=== PATIENT | female | born 1945 | race Caucasian/White ===

== ENCOUNTER 2022-08-25 07:53 | Emergency (ER) | payer MEDICARE, OTHER, SELFPAY ==
[2022-08-25 07:56] VITALS: BP 140/104; PULSE 131; RESP 17; TEMP 35.6; O2SAT 97; BMI 33.1
--- NOTE | 2022-08-25 07:57 | NURSING ---
NO OLD EKGS
[2022-08-25 08:17] VITALS: BP 109/97; PULSE 146; RESP 17; O2SAT 97
--- NOTE | 2022-08-25 08:18 | EKG12_ITS ---
Test Reason : DYSRHYTHMIA Blood Pressure : / mmHG Vent. Rate : 125 BPM Atrial Rate : 136 BPM P-R Int : 000 ms QRS Dur : 146 ms QT Int : 340 ms P-R-T Axes : 000 -51 102 degrees QTc Int : 490 ms Atrial fibrillation Left axis deviation Left bundle branch block Abnormal ECG Confirmed by PABLO SUE, ODALYS ([id number]), index editor VEDA CLARK ([id number]) on 08/28/2022 1:06:38 PM Referred By: NASIMA/JAEL Confirmed By:ODALYS SHAH MD
--- NOTE | 2022-08-25 08:19 | EX.ED.DYSGE1 ---
HPI History of Present Illness Chief Complaint: Palpitations Narrative Narrative: 77-year-old female with past medical history of atrial fibrillation, pacemaker, presents with a feeling that she is in atrial fibrillation again. She states she takes Xarelto as a blood thinner and has not missed a dose in over 2 weeks. She thought that she was in atrial fibrillation this morning at around 330 because she had to urinate more. She was last in atrial fibrillation as her underlying rhythm in May. She states her mine geologist, Dr. Reese at [facility] gave her 1 dose of Tikosyn, but she was very reactive towards that. Additionally, she had an ablation prior to her pacemaker placement. She denies any chest pain or shortness of breath. No other symptoms. She states that before they were going to cardiovert her, her potassium was low and it was replaced which helped her spontaneously cardioverted on her own. She does take metoprolol for rate control otherwise. No fevers or chills. No other symptoms. PFSH PFS Home Medications metoprolol tartrate 50 mg tablet 50 mg PO BID #30 tabs 08/25/22 [Rx Last Taken Unknown] sulfamethoxazole 800 mg-trimethoprim 160 mg tablet (Bactrim DS) 1 tab PO BID #6 tabs 08/25/22 [Rx Last Taken Unknown] Allergy/AdvReac Type Severity Reaction Status Date / Time azithromycin [From Zithromax] Allergy Angioedema Verified 08/25/22 07:55 Cephalosporins Allergy Swelling Verified 08/25/22 07:55 lisinopril AdvReac cough Verified 08/25/22 07:55 Social History Smoking Status: Never smoker ROS ROS ED ROS Narrative Constitutional: No fever, no chills. HEENT: No sore throat. No neck pain. No loss of vision. No rhinorrhea. Cardiovascular: No chest pain. Mild palpitations. I am in A. fib again. No pedal edema. Respiratory: No cough, no shortness of breath. Abdominal: No abdominal pain. No nausea. No vomiting. Genitourinary: No dysuria. No hematuria. Musculoskeletal: No myalgias. No arthralgias. Positive back pain from remote injury. Neurologic: No headaches. No dizziness. No lightheadedness. Skin: No rash. No change in color. Psychiatric: No depression. No anxiety. EXAM Physical Exam Narrative Exam Narrative: Afebrile. Vital signs noted. HEENT: Normocephalic. Atraumatic. PERRL, EOMI. Neck soft and supple. No point tenderness or step off. Cardiovascular: Irregularly irregular tachycardia.. No murmurs, rubs, or gallops appreciated. Respiratory: No tachypnea. Lungs clear to auscultation bilaterally. Gastrointestinal: Abdomen soft, nontender, with normoactive bowel sounds. No rebound or guarding. Neurological: Awake. Alert. Nonfocal, nonlateralizing. Skin: No rash. Normal color. No pallor. Musculoskeletal: No pedal edema. Full range of motion extremities. Const Vital Signs: 08/25/22 07:56 08/25/22 08:17 08/25/22 08:17 Temperature 96.0 F L Temperature Source Temporal Pulse Rate 131 H 146 H Respiratory Rate 17 17 Respiratory Pattern Normal Blood Pressure 140/104 H 109/97 H Blood Pressure Mean 116 101 Pulse Ox 97 97 Oxygen Delivery Method Room Air Room Air 08/25/22 08:42 08/25/22 09:31 08/25/22 10:25 Temperature Temperature Source Pulse Rate 142 H 130 H 118 H Respiratory Rate 13 29 H Respiratory Pattern Blood Pressure 128/94 H 122/69 H Blood Pressure Mean 105 86 Pulse Ox 97 95 Oxygen Delivery Method Room Air Room Air MDM MDM MDM Narrative Medical decision making narrative: Comprehensive work-up was pursued. Her EKG interpreted by myself demonstrates atrial fibrillation at [address] changes. There is left bundle branch block, but this is most likely secondary to her pacemaker placement. I will check her electrolytes, CBC, and troponin along with a urinalysis and chest x-ray. She was administered metoprolol 5 mg intravenously once for better rate control. As she has required pacemaker, anticus and, I will discuss the patient with her mine geologist prior to attempting cardioversion as it seems she may be very sensitive to medications, but was told that they may keep Tikosyn in pocket in case it is absolutely needed. She has normal blood pressure currently so I do not feel emergent cardioversion is indicated. I discussed the patient with Dr. Barbosa for Dr. Reese who agrees with possible cardioversion a few days from now to see if she will spontaneously cardioverted on her own. I will increase her metoprolol to 50 mg of tartrate twice a day for better rate control. It was not thought that heart rate would be an issue as she does have a pacemaker in place. At this point in time, she will be discharged to follow-up with her mine geologist in the next few days. She was told that they are requesting a transmission from her pacemaker in the next day or 2. Return instructions to the emergency department were reviewed. Of note, her urinalysis shows 10-25 WBCs, but she has not necessarily showing UTI type symptoms. Her urine will be sent for culture and she was placed on 3 days of Bactrim. Disposition is discharged home in stable condition. Lab Data Attestation: I reviewed the patient's lab results. Labs: Laboratory Results - last 24 hr 08/25/22 08/25/22 08/25/22 08:35 08:35 10:06 WBC 6.4 RBC 4.19 L Hgb 12.2 Hct 38.3 MCV 91.4 MCH 29.1 MCHC 31.9 L RDW Std Deviation 42.7 RDW Coeff of Shanice 12.8 Plt Count 219 MPV 10.5 Immature Gran % (Auto) 0.300 Neut % (Auto) 74.4 H Lymph % (Auto) 15.6 L Humphreys % (Auto) 7.2 Eos % (Auto) 1.7 Baso % (Auto) 0.8 Absolute Neuts (auto) 4.8 Absolute Lymphs (auto) 1.00 Nucleated RBC % 0 Sodium 144 Potassium 3.8 Chloride 111 H Carbon Dioxide 26.0 Anion Gap 7 BUN 13 Creatinine 0.98 Estim Creat Clear Calc 45.00 Est GFR (MDRD) Af Amer 70 Est GFR (MDRD) Non-Af 58 L BUN/Creatinine Ratio 13.2 Glucose 109 H Calcium 9.0 Total Bilirubin 0.90 AST 12 L ALT 18 Alkaline Phosphatase 121 H Troponin I High Sens 25 Total Protein 7.2 Albumin 3.4 Globulin 3.8 Albumin/Globulin Ratio 0.9 Urine Color Yellow Urine Clarity Sl. Cloudy Urine pH 5.0 Ur Specific [place] 1.020 Urine Protein Negative Urine Glucose (UA) Normal Urine Ketones Negative Urine Occult Blood 10 H Urine Nitrite Negative Urine Bilirubin Negative Urine Urobilinogen Normal Ur Leukocyte Esterase 500 H Urine RBC 0 SEEN Urine WBC 10-25 SEEN Ur Squamous Epith Cells 0-5 SEEN Ur Transition Epith Cell 0-5 SEEN Urine Bacteria 0 SEEN Hyaline Casts 0-5 SEEN Urine Mucus 2+ Radiography Diagnostic Testing: Clinical Impression(s) from Imaging Studies Chest X-Ray 08/25/22 08:30 IMPRESSION: No acute abnormality is present. Electronically Signed: Raad Candelaria MD at 8:57 EDT , Discharge Plan Triage Chief Complaint: Palpitations ED Provider: Malcolm Lowry Dx/Rx/DC Orders Clinical Impression: Atrial fibrillation, UTI (urinary tract infection) Instructions: ED AFIB, ED Cystitis Female Adult Prescriptions: New metoprolol tartrate 50 mg tablet 50 mg PO BID Qty: 30 0RF sulfamethoxazole-trimethoprim [Bactrim DS] 800-160 mg tablet 1 tab PO BID Qty: 6 0RF Rx Instructions: give 3 days/wk (alternating days) Primary Care Provider: Jens Mays Referrals: Jens Mays MD [Primary Care Provider] - Activity Restrictions/Additional Instructions: Follow-up with Dr. Reese in the next few days. Transmit a reading of your pacemaker in the next 1 to 2 days. Increase your metoprolol to 50 mg twice a day. Disposition Disposition: Home, Self Care
--- NOTE | 2022-08-25 08:30 | RAD_ITS ---
STUDY: X-RAY CHEST REASON FOR EXAM: Female, 77 years old. CAD TECHNIQUE: Single AP portable view of the chest. COMPARISON: None. FINDINGS: EKG electrodes are seen. The lungs are clear and expanded. There is no demonstrated pleural abnormality. Normal size heart. A left-sided dual-chamber pacemaker is seen. Normal mediastinum and sam. Normal visualized pulmonary arteries. There is atherosclerotic calcification of the aortic arch with tortuosity. There are diffuse degenerative changes of the visualized thoracic spine. There is degenerative osteoarthritis of the bilateral shoulders. There is no demonstrated abnormality of the visualized soft tissue structures of the upper abdomen. RAD/Chest 1 View (Portable) IMPRESSION: No acute abnormality is present. Electronically Signed: Raad Candelaria MD at 8:57 EDT ,
[2022-08-25 08:42] VITALS: PULSE 142
[2022-08-25] MEDS: Metoprolol Tartrate 5 MG/5 ML Vial IV ×2 (08:42→10:26)
[2022-08-25] MEDS: 0.9% Normal Saline 1,000 ML 150 ML IV (08:42)
[2022-08-25 08:46] LABS: Absolute Neutrophil Count 4.8 X10^3/uL (2.0-7.7); Basophil# 0.05 X10^3/uL; Basophil% 0.8 % (0-1); Eosinophil# 0.11 X10^3/uL; Eosinophils% 1.7 % (0-5); Hematocrit 38.3 % (37-47); Hemoglobin 12.2 g/dL (12.0-15.0); Lymphocyte % 15.6 % (19-41); Mean Corp Hgb Conc 31.9 g/dL (32-36); Mean Corpuscular Hgb 29.1 pg (27.0-32.0); Mean Corpuscular Volume 91.4 fL (81-99); Mean Platelet Vol. 10.5 fl (6.2-12.0); Monocyte# 0.46 X10^3/uL; Monocyte% 7.2 % (0-10); NRBC Flagged by Analyzer 0 % (0-5); Neutrophil # 4.76 X10^3/uL (2.7-7.7); Neutrophil % 74.4 % (47-70); Platelet Count 219 K/mm3 (150-450); RBC Distribution Width CV 12.8 % (11.6-14.6); RBC Distribution Width SD 42.7 fl (35.1-43.9); Red Blood Count 4.19 M/mm3 (4.2-5.4); White Blood Count 6.4 K/mm3 (4.4-11.0)
[2022-08-25 09:06] LABS: ALB/GLOB Ratio 0.9 RATIO (0.9-2.4); AST(SGOT) 12 U/L (15-37); Alanine Aminotransfer ALT/SGPT 18 U/L (13-56); Albumin, Serum 3.4 g/dL (3.2-5.0); Alkaline Phosphatase 121 U/L (45-117); Anion Gap 7 (5-15); BUN 13 mg/dL (7-18); BUN/Creat Ratio 13.2 RATIO (10-20); Chloride 111 mmol/L (98-107); Creatinine, Serum 0.98 mg/dL (0.55-1.02); EST Glomerular Filtration Rate 58 mL/min (>60); Est Glom Filt Rate - Afr Amer 70 mL/min (>60); Globulin 3.8 g/dL (2.2-4.2); Glucose 109 mg/dL (74-106); Potassium 3.8 mmol/L (3.5-5.1); Protein, Total 7.2 g/dL (6.4-8.2); Sodium Level 144 mmol/L (136-145); Troponin-I HS 25 pg/mL (3.0-54.0)
[2022-08-25 09:31] VITALS: BP 128/94; PULSE 130; RESP 13; O2SAT 97
--- NOTE | 2022-08-25 09:47 | NURSING ---
ATTEMPTING TO REACH DR VARGAS [phone]
[2022-08-25 10:22] LABS: Bacteria 0 SEEN /hpf (None Seen); Red Blood Cells-Urine 0 SEEN /hpf (0-5)
[2022-08-25 10:25] VITALS: BP 122/69; PULSE 118; RESP 29; O2SAT 95
[2022-08-25 10:31] LABS: Color, Urine Yellow (Yellow); Glucose, Dipstick Normal (Normal); Ketone-Dipstick Negative (Negative); Leukocyte Esterase-Dipstick 500 /ul (Negative); Nitrite-Dipstick Negative (Negative); Occult Blood-Urine 10 /ul (Negative); Protein-Dipstick Negative (Negative); Urine Bilirubin Dipstick Negative (Negative); Urine Clarity Sl. Cloudy (Clear); Urine Urobilinogen Normal (Normal)
[2022-08-25 10:58] LABS: Hyaline Cast 0-5 SEEN /lpf (0-5); Mucous, Urine 2+ /hpf (<or=2+); Squamous Epithelial Cells - UA 0-5 SEEN /hpf (5-10); Transitional Epithelial - Ur 0-5 SEEN /hpf (0-5); White Blood Cells 10-25 SEEN /hpf (0-5)
[2022-08-25 11:35] VITALS: BP 106/78; PULSE 99; RESP 16; O2SAT 95
== END 2022-08-25 11:40 | disposition home or self-care (01) ==
PROVIDERS: Emergency Provider Emergency Medicine; PCP Family Medicine; Visit Provider Emergency Medicine
DX: N39.0 Urinary tract infection, site not specified (principal); I48.91 Unspecified atrial fibrillation; I44.7 Left bundle-branch block, unspecified; R00.2 Palpitations; Z95.0 Presence of cardiac pacemaker
CPT/HCPCS: 71045; 80053; 81001; 84484; 85025; 87086; 93005; 96361; 96374; 96376; 99284; J7030; A4216

== ENCOUNTER 2023-11-22 10:07 | Emergency (ER) | payer MEDICARE, OTHER, SELFPAY ==
[2023-11-22 10:08] VITALS: BP 120/63; PULSE 80; RESP 18; TEMP 36.8; O2SAT 95; BMI 34.7
[2023-11-22 10:12] VITALS: BP 120/63; PULSE 66
--- NOTE | 2023-11-22 10:13 | EKG12_ITS ---
Test Reason : PALPS Blood Pressure : / mmHG Vent. Rate : 076 BPM Atrial Rate : 076 BPM P-R Int : 102 ms QRS Dur : 148 ms QT Int : 410 ms P-R-T Axes : 000 049 083 degrees QTc Int : 461 ms AV dual-paced rhythm Abnormal ECG Confirmed by KATERINA SUE, GILBERTO ([id number]), photography editor VEDA CLARK ([id number]) on 11/24/2023 9:52:06 AM Referred By: SIOMARA Confirmed By:GILBERTO BORGES MD
--- NOTE | 2023-11-22 10:21 | RAD_ITS ---
HISTORY: chest pain. TECHNIQUE: XR Chest 1 View. COMPARISON: 08/25/2022. FINDINGS: CARDIOMEDIASTINAL BORDERS: Cardiac silhouette within normal limits in size with pacemaker in place. Mediastinal contour unremarkable with calcification of the aorta. LUNGS: Radiographically clear. PLEURA: No pleural effusion or pneumothorax seen. OSSEOUS STRUCTURES: Degenerative change. RAD/Chest 1 View (Portable) IMPRESSION: No acute cardiopulmonary process identified. Electronically Signed: Sarah Burton MD at 10:51 EST ,
--- NOTE | 2023-11-22 10:38 | EDS_ITS ---
HPI History of Present Illness Chief Complaint: Palpitations Detail of Chief Complaint: A-fib. Informant: patient and family Onset/Context/Timing Onset: Today and Hours Activity at onset: sudden Timing: Continuous Associated Symptoms: Positive for Dyspnea and Palpitations; Negative for Nausea, Vomiting, Diaphoresis, Cough, Fever, Lightheadedness or Acid Reflux Narrative Narrative: 78-year-old female history of A-fib and a pacemaker. Send when she got up this morning she checked her pulse and blood pressure and found she was in A-fib rate between 78 and 115. She is on Xarelto. She said when she found she was in A- fib she took her metoprolol converted back to a paced rhythm. She denies any chest pain. She has not been recently ill over the last several days. She did have COVID 3 weeks ago. Prior Similar Symptoms: Yes Recent Illness/Hospitalization: No CVD Risk Factors: Negative for Diabetes PE Risk Factors: Negative for Recent Travel/Surgery, Recent Immobilization, Prior DVT or PE, Cancer, OCP + Smoking + >/=35 or - TAD Risk Factors: Negative for Marfan's Syndrome PFSH PFS Medical History Afib Home Medications metoprolol tartrate 50 mg tablet 50 mg PO BID #30 tabs 08/25/22 [Rx Last Taken Unknown] levothyroxine 112 mcg tablet 112 mcg PO DAILY 11/22/23 [History Last Taken Unknown] rivaroxaban 20 mg tablet (Xarelto) 20 mg PO Q24H 11/22/23 [History Last Taken Unknown] Allergy/AdvReac Type Severity Reaction Status Date / Time azithromycin [From Zithromax] Allergy Angioedema Verified 11/22/23 10:08 Cephalosporins Allergy Swelling Verified 11/22/23 10:08 lisinopril AdvReac cough Verified 11/22/23 10:08 Social History Smoking Status: Never smoker ROS ROS ED ROS Narrative Denies recent illness. No chest pain. Review of Systems ROS Unobtainable: Denies due to encephalopathy Constitutional Constitutional ED: Denies chills or fever(s) Eyes Eyes: Reports none ENT ENT ED: Denies ear pain Cardiovascular Cardiovascular: Reports palpitations; Denies chest pain Respiratory/Chest Respiratory/Chest: Denies cough or dyspnea Gastrointestinal Gastrointestinal: Denies abdominal pain Genitourinary Genitourinary ED: Denies dysuria or hematuria Musculoskeletal Musculoskeletal: Denies arthralgias Integumentary Denies abscess Neurologic Neurologic: Denies headache(s) Psychiatric Psychiatric: Denies anxiety or depression Endocrine Endocrinology: Denies cold intolerance Hematologic/Lymphatic Hematologic/Lymphatic: Denies easy bleeding Allergic/Immunologic Allergic/Immunologic ED: Denies mouth swelling or tongue swelling EXAM Physical Exam Narrative Exam Narrative: Well-appearing 78-year-old female. Vital signs are stable afebrile. Pulse ox 95% on room air no hypoxia. Patient sitting upright in bed. Clinically looks well. H EENT exam unremarkable. Neck nontender. Lungs clear to auscultation bilaterally. Heart regular rhythm rate about 60 paced on the monitor. No murmur. Chest wall nontender. Abdomen soft nontender. Moving all 4 extremities. Nontender no edema. Patient is awake and alert. Answering questions and following commands. Const Vital Signs: 11/22/23 10:08 11/22/23 10:12 11/22/23 10:29 Temperature 98.2 F Temperature Source Temporal Pulse Rate 80 66 Respiratory Rate 18 Blood Pressure 120/63 120/63 Blood Pressure Mean 82 82 Pulse Ox 95 Oxygen Delivery Method Room Air Room Air 11/22/23 14:00 11/22/23 13:00 Temperature Temperature Source Pulse Rate 64 63 Respiratory Rate 16 16 Blood Pressure 98/48 L 115/69 Blood Pressure Mean 64 84 Pulse Ox 96 98 Oxygen Delivery Method Room Air Room Air Positive well nourished and well developed; Negative for cachectic, contractures or unkempt General Appearance ED: well developed and NAD; Negative for unkempt, cachectic, contractures or pallor Nutritional Appearance: Negative for cachectic HEENT Reports moist mucous membranes normocephalic and atraumatic; Negative for trauma or tenderness Eyes PERRL and EOMs intact bilaterally General Eye ED: Negative for pale conjunctiva or scleral icterus Neck no lymphadenopathy, supple and no JVD General: Negative for tenderness Chest Wall inspection of chest normal and palpation of chest normal Chest: Negative for tenderness Resp normal respiratory effort and clear to auscultation bilaterally Effort and Inspection: Negative for respiratory distress Auscultation: Negative for rales, rhonchi or wheezes Cardio regular rate, regular rhythm, S1 normal heart sound, S2 normal heart sound and no murmurs Rate: other Other Details: Paced rhythm at 60. ; Negative for bradycardia or tachycardic Rhythm: Negative for abnormal rhythm Peripheral Pulses: pulses 2+ throughout GI normal to inspection, nondistended, normoactive bowel sounds, soft to palpation, non-tender, non-distended and no masses Auscultation: Negative for hyperactive bowel sounds Palpation: Negative for splenomegaly, mass or other Back/Spine no CVA tenderness and no thoracic nor lumbar tenderness General Back: Negative for CVA tenderness Cervical Spine: Negative for cervical spine tenderness Extremity normal to inspection General Extremety ED: Negative for edema, pulses abnormal or tenderness General Extremity: Negative for edema or pulses abnormal Neuro oriented x3 and CN's II-XII intact bilaterally Sensorium / Orientation: awake, alert, oriented to person, oriented to place and oriented to time; Negative for confused, lethargic or stuporous Motor Exam: strength 5/5 throughout Psych mental status grossly normal Appearance: Negative for unkempt Attitude: No agitated Mood & Affect: Negative for depressed, anxious or tearful Skin no rashes or lesions noted and no wounds General Skin Exam: Negative for jaundice or pallor Rashes: No rashes noted Trauma: Negative for abrasion, laceration or puncture MDM MDM MDM Narrative Medical decision making narrative: 78-year-old female on Xarelto and metoprolol for history of A-fib and has a pacemaker. Was in A-fib this morning which is since resolved. Exam benign. Cardiac workup. Repeat exam patient is doing well at 11:50 AM. And again at 12:45 AM. I will speak with cardiology the troponins are elevated but just barely and she has had no chest pain. I did speak to cardiology on-call Dr. Vegas. Plan is to do a 4- hour troponin and if that is not significantly elevated from the 2 prior to discharge patient home with outpatient follow-up. Patient doing well at 2:48 PM. To be discharged home with outpatient follow-up. History & Record Review Discussion w/independent historian: Patient and Family Additional record(s) reviewed:: Prior inpatient record, Prior outpatient record, Prior ED visit and Prior labs Lab Data Attestation: I reviewed the patient's lab results. Lab results narrative: CBC shows a white count of 7. H&H 11.9 and 37. Platelets 176. Electrolytes show a gap of 6. Normal BUN and creatinine. Glucose 122. Troponin is slightly elevated at 61. 2-hour troponin was 62. 4-hour troponin level creased to 57. Labs: Laboratory Results - last 24 hr 11/22/23 11/22/23 11/22/23 10:15 12:15 14:18 WBC 7.1 RBC 4.09 L Hgb 11.9 L Hct 37.3 MCV 91.2 MCH 29.1 MCHC 31.9 L RDW Std Deviation 43.1 RDW Coeff of Shanice 13.0 Plt Count 176 MPV 10.9 Immature Gran % (Auto) 0.400 Neut % (Auto) 77.0 H Lymph % (Auto) 13.9 L Cocke % (Auto) 6.6 Eos % (Auto) 1.5 Baso % (Auto) 0.6 Absolute Neuts (auto) 5.5 Absolute Lymphs (auto) 0.99 Nucleated RBC % 0 Sodium 144 Potassium 3.7 Chloride 112 H Carbon Dioxide 26.0 Anion Gap 6 BUN 15 Creatinine 0.97 Estim Creat Clear Calc 44.75 Est GFR (MDRD) Af Amer 72 Est GFR (MDRD) Non-Af 59 L BUN/Creatinine Ratio 15.5 Glucose 122 H Calcium 8.7 Troponin I High Sens 61 H 62 H 57 H Radiography Chest X-Ray - ED: 1 View, Heart, Lungs, Mediastinum, Bony Structures, No Acute Disease and Chronic Changes (Left-sided cardiac pacemaker.) Diagnostic Testing: Clinical Impression(s) from Imaging Studies Chest X-Ray 11/22/23 10:21 IMPRESSION: No acute cardiopulmonary process identified. Electronically Signed: Sarah Burton MD at 10:51 EST , Rhythm Strip Rhythm Strip: Paced Rate: 76 Ectopy: None EKG Initial EKG: Attestation: I personally reviewed and interpreted this EKG as follows: Interpretation: Paced Comments: Paced rhythm rate is 76 no acute signs of ND or ischemia. Discharge Plan Triage Chief Complaint: Palpitations ED Provider: Jesús Bailey Dx/Rx/DC Orders Clinical Impression: History of cardiac pacemaker, A-fib Instructions: ED AFIB Prescriptions: No Action metoprolol tartrate 50 mg tablet 50 mg PO BID Qty: 30 0RF levothyroxine 112 mcg tablet 112 mcg PO DAILY Patient Comments: TAKE 1 TABLET BY MOUTH EVERY DAY Xarelto 20 mg tablet 20 mg PO Q24H Patient Comments: TAKE 1 TABLET BY MOUTH EVERY DAY Primary Care Provider: Jens Mays Referrals: Jens Mays MD [Primary Care Provider] - Activity Restrictions/Additional Instructions: Continue your current medications. Follow-up with your speech and drama teacher. Return if feeling worse. Disposition Disposition: Home, Self Care
[2023-11-22 10:40] LABS: Absolute Lymphocyte Count 0.99 X10^3/uL (0.83-4.51); Absolute Neutrophil Count 5.5 X10^3/uL (2.0-7.7); Basophil# 0.04 X10^3/uL; Basophil% 0.6 % (0-1); Eosinophil# 0.11 X10^3/uL; Eosinophils% 1.5 % (0-5); Hematocrit 37.3 % (37-47); Hemoglobin 11.9 g/dL (12.0-15.0); Lymphocyte # 0.99 X10^3/ul (0.83-4.51); Lymphocyte % 13.9 % (19-41); Mean Corp Hgb Conc 31.9 g/dL (32-36); Mean Corpuscular Hgb 29.1 pg (27.0-32.0); Mean Corpuscular Volume 91.2 fL (81-99); Mean Platelet Vol. 10.9 fl (6.2-12.0); Monocyte# 0.47 X10^3/uL; Monocyte% 6.6 % (0-10); NRBC Flagged by Analyzer 0 % (0-5); Neutrophil # 5.47 X10^3/uL (2.7-7.7); Platelet Count 176 K/mm3 (150-450); RBC Distribution Width SD 43.1 fl (35.1-43.9); Red Blood Count 4.09 M/mm3 (4.2-5.4); White Blood Count 7.1 K/mm3 (4.4-11.0)
[2023-11-22 10:41] LABS: Anion Gap 6 (5-15); BUN 15 mg/dL (7-18); BUN/Creat Ratio 15.5 RATIO (10-20); Calcium,Total 8.7 mg/dL (8.5-10.1); Chloride 112 mmol/L (98-107); Creatinine, Serum 0.97 mg/dL (0.55-1.02); EST Glomerular Filtration Rate 59 mL/min (>60); Est Glom Filt Rate - Afr Amer 72 mL/min (>60); Estimated Creatinine Clearance 44.75 ml/min; Glucose 122 mg/dL (74-106); Potassium 3.7 mmol/L (3.5-5.1); Sodium Level 144 mmol/L (136-145); Troponin-I HS 61 pg/mL (3.0-54.0)
--- OUTSIDE RECORDS SUMMARY | 2023-11-22 11:12 | XMS RPT_ITS | CCD ---
Author Name Unknown Address [address] [place] [address] Organization [facility] Care Team Providers Care Air Conditioning Service Technician Name Role Phone Davon SUE, Jens Nicole Primary Care Provider [phone] BLUE DIGGS DO Admitting Unavailable BLUE DIGGS DO Primary Care Unavailable BULE DIGGS DO Attending Unavailable JENS MAYS Consulting Unavailable JENS MYAS Referring Unavailable PROVIDER, UNKNOWN Consulting Unavailable PROVIDER, UNKNOWN Consulting Unavailable PROVIDER, UNKNOWN Consulting Unavailable DEFABIO, ENEDINA DO Admitting Unavailab le DEFABIO, ENEDINA DO Primary Care Unavailab le DEFABIO, ENEDINA DO Attending Unavailab le JENS MAYS Consulting Unavailable JENS MAYS Referring Unavailable PROVIDER, UNKNOWN Consulting Unavailable PROVIDER, UNKNOWN Consulting Unavailable PROVIDER, UNKNOWN Consulting Unavailable Davon SUE, Jens Nicole Primary Care Provider Davon SUE, Jens Nicole Primary Care Provider [phone] Hugh SUE, Fareed Unavailable Jens Mays MD Primary Care Provider [phone] Hugh SUE, Fareed Unavailable [phone] JAVAN SOLOMON Referring Unavailable JENS MAYS Primary Care Unavailable JAVAN SOLOMON Referring Unavailable JENS MAYS Primary Care Unavailable JAVAN SOLOMON Referring Unavailable JENS MAYS Primary Care Unavailable JENS MAYS Primary Care Unavailable JAVAN SOLOMON Referring Unavailable Allergies Allergy Classification Reported Allergen(s) Allergy Type Date of Onset Reaction(s) Facility (16 sources) Azithromycin; Translations: [AZITHROMYCIN] Drug Allergy 0 [facility] (4 sources) Cephalosporins (Antibiotic); Translations: [CEPHALOSPORINS] Drug Allergy 9 [facility] (16 sources) levoFLOXacin; Translations: [LEVOFLOXACIN] Drug Allergy 9 [facility] (1 source) Azithromycin Drug Allergy [facility] (1 source) levoFLOXacin Drug Allergy [facility] (12 sources) Cephalosporins (Antibiotic) Drug Allergy 9 Swelling [facility] (13 sources) Lisinopril; Translations: [LISINOPRIL] Drug Allergy 2 Cough [facility] Medications Completed/Discontinued Medications Medication Drug Class(es) Dates Sig (Normalized) Sig (Original) alendronic acid 35 mg oral tablet (15 sources) Bisphosphonate take 1 tablet by marisol th every week in the morning alendronate (FOSAMAX) 35 mg tablet Take 35 mg by mouth one time a week. In AM with cup of water on empty stomach. Nothing else by mouth and stay upright for 30 min. 0 Active Problems Active Problems Problem Classification Problem Date Documented Da te Episodic/Chronic Cancer of colon (20 sources) Malignant tumor of colon; Translations: [Malignant neoplasm of colon, unspecified] Onset: 06-10-2010 06-10-2010 Chronic Cardiac dysrhythmias (20 sources) Persistent atrial fibrillation; Translations: [Other persistent atrial fibrillation] Onset: 05-13-2019 Chronic Conduction disorders (20 sources) Cardiac pacemaker in situ; Translations: [Presence of cardiac pacemaker] Onset: 05-08-2021 05-08-2021 Chronic Essential hypertension (15 sources) Essential hypertension; Translations: [Essential (primary) hypertension] Onset: 05-08-2021 05-08-2021 Chronic Other and ill-defined heart disease (15 sources) Mild left ventricular systolic dysfunction; Translations: [Other ill-defined heart diseases] Onset: 05-08-2021 05-08-2021 Chronic Other gastrointestinal disorders (1 source) Ileostomy present; Translations: [Encounter for attention to ileostomy] Chronic Residual codes; unclassified (15 sources) Sleep apnea; Translations: [Sleep apnea, unspecified] Onset: 08-31-2019 03-29-2020 Chronic Residual codes; unclassified (15 sources) Obstructive sleep apnea syndrome; Translations: [Obstructive sleep apnea (adult) (pediatric)] Onset: 11-17-2019 05-08-2021 Chronic Past or Other Problems Problem Classification Problem Date Documented Date Episodic/Chronic Joint disorders and dislocations; trauma-related (15 sources) Tear of meniscus of knee; Translations: [Unspecified tear of unspecified meniscus, current injury, right knee, initial encounter] Onset: 01-19-2012 01-19-2012 Episodic Other and unspecified benign neoplasm (15 sources) Familial multiple polyposis syndrome; Translations: [Benign neoplasm of colon, unspecified] Onset: 02-04-2012 02-04-2012 Episodic Other non-traumatic joint disorders (15 sources) Pain in right knee; Translations: [Pain in joint, lower leg] Onset: 01-19-2012 01-19-2012 Episodic Ovarian cyst (15 sources) Complex ovarian cyst; Translations: [Other ovarian cyst, unspecified side] Onset: 12-27-2012 11-11-2021 Episodic Residual codes; unclassified (15 sources) History of ablation of atrioventricular node; Translations: [Other specified postprocedural states] Onset: 10-06-2019 03-29-2020 Episodic Sprains and strains (15 sources) Injury of lower extremity; Translations: [Sprain of other specified parts of unspecified knee, initial encounter] Onset: 04-29-2012 04-29-2012 Episodic Results Test Name Value Interpretation Reference Range Facil ity Encounters Encounter Date Encounter Type Care Provider Facility Start: 10-23-2023 End: 10-23-2023 ambulatory JAVAN WILKOFF Facility:[facility] Start: 09-15-2023 Follow-up encounter Fareed stanton MD Work Phone: [facility] Start: 09-15-2023 Pacemaker Remote F/U Fareed Carlos MD Work Phone: [facility] Start: 07-27-2023 Refill Fareed norton MD Work Phone: Cardiology Procedures Date Procedure Procedure Detail Performing Clinician Start: 09-15-2023 PACEMAKER REMOTE CHECK Fareed Reese MD Work Phone: Start: 06-16-2023 PACEMAKER REMOTE CHECK Fareed Reese MD Work Phone: Start: 03-17-2023 PACEMAKER REMOTE CHECK Fareed Reese MD Work Phone: Start: 08-26-2022 PACEMAKER REMOTE CHECK Fareed Reese MD Work Phone: Start: 06-17-2022 PACEMAKER REMOTE CHECK Fareed Reese MD Work Phone: Start: 05-18-2022 PACEMAKER REMOTE CHECK Fareed Reese MD Work Phone: Start: 03-19-2022 PACEMAKER REMOTE CHECK Fareed Reese MD Work Phone: Start: 02-18-2022 Echo tthrc r-t 2d w/wom-mode compl spec&colr d Fareed Reese MD Work Phone: Start: 04-16-2017 Adult depression screening assessment [facility] Work Phone: Plan of Treatment Date Care Activity Detail Author Start: 05-18-2025 DIABETES SCREEN DIABETES SCREEN [facility] Start: 05-18-2025 Diabetes Screening Diabetes Screenin g [facility] Start: 07-30-2024 Urine microalbumin profile [facility] Start: 02-23-2024 DIABETES SCREEN DIABETES SCREEN [facility] Start: 07-17-2023 Covid-19 Vaccine ( season) Covid-19 Vaccine ( season) [facility] Start: 07-17-2023 Influenza vaccination C [facility] Start: 11-16-2022 ADVANCE DIRECTIVE DISCUSSION ADVANCE DIRECTIVE DISCUSSION [facility] Start: 11-16-2022 [facility] Start: 07-17-2022 Influenza vaccination INFLUENZA (#1) [facility] Start: 03-13-2022 COVID-19 VACCINE (4 - Booster for Moderna series) COVID-19 VACCINE (4 - Booster for Moderna series) [facility] Start: 01-07-2022 COVID-19 VACCINE (4 - Booster for Moderna series) COVID-19 VACCINE (4 - Booster for Moderna series) [facility] Start: 01-07-2022 COVID-19 VACCINE (4 - Moderna series) COVID-19 VACCINE (4 - Moderna series) [facility] Start: 11-16-2021 ADVANCE DIRECTIVE DISCUSSION ADVANCE DIRECTIVE DISCUSSION [facility] Start: 11-16-2021 DEPRESSION ASSESSMENT DEPRESSION ASS ESSMENT [facility] Start: 04-16-2018 Adult depression screening assessment DEPRESSION SCREENING [facility] Start: 2010 BONE DENSITY BONE DENSITY [facility] Start: 2010 Bone Density Screening Bone Density Screening [facility] Start: 1995 SHINGRIX VACCINE (1 of 2) SHINGRIX VACCINE (1 of 2) [facility] Start: 1964 SHINGRIX VACCINE (1 of 2) SHINGRIX VACCINE (1 of 2) [facility] Start: 1963 ANNUAL PCP TEAM COMPUTER NETWORKER LOUIS DISEASE VISIT ANNUAL PCP TEAM CHRONIC DISEASE VISIT [facility] Start: 1963 BP CONTROLLED (<130/80) BP CON TROLLED (<130/80) [facility] Start: 1963 HEPATITIS C SCREENING HEPATITIS C [facility] DEFINITY CONTRAST DEFINITY CONTR AST Echo Today Atrial fibrillation, persistent (HCC) Ordered: 02/18/2022 [facility] Work Phone: Immunizations Immunization Date Immunization Notes Care Provider Fa isabela 11-14-2022 influenza virus vaccine, unspecified formulation Fareed Reese MD Work Phone: [facility] 07-28-2018 influenza virus vaccine, unspecified formulation [facility] Work Phone: [facility] Work Phone: 08-12-2017 influenza, injectabl e, quadrivalent, contains preservative [facility] Work Phone: [facility] Work Phone: 12-19-2015 influenza, seasonal, injectable [facility] Work Phone: [facility] Work Phone: 12-25-2014 pneumococcal conjuga te vaccine, 13 valent [facility] Work Phone: [facility] Work Phone: 07-30-2014 TD(adult) unspecifie d formulation [facility] Work Phone: [facility] Work Phone: 11-01-2013 influenza virus vaccine, unspecified formulation [facility] Work Phone: [facility] 12-21-2012 pneumococcal polysaccharide vaccine, 23 valent [facility] Work Phone: [facility] Work Phone: 08-08-2011 tetanus toxoid, reduced diphtheria toxoid, and acellular pertussis vaccine, adsorbed [facility] Work Phone: [facility] Work Phone: 09-24-2010 influenza virus vaccine, unspecified formulation [facility] Work Phone: [facility] 09-04-2008 pneumococcal polysaccharide vaccine, 23 valent Estee Talbert HOCKEY PLAYER.SALES PROMOTION REPRESENTATIVE Work Phone: [facility] 08-18-1997 hepatitis B vaccine, adult dosage [facility] Work Phone: [facility] Work Phone: 03-07-1997 hepatitis B vaccine, adult dosage [facility] Work Phone: [facility] Work Phone: 02-03-1997 hepatitis B vaccine, adult dosage [facility] Work Phone: [facility] Work Phone: Payers Date Payer Category Payer Private Health Insurance [facility] SUPPLEMENT [id number] 2021-Present [phone] [address] [place] [address] Indemnity [id number] 2021 Unknown [id number] 2013 Private Health Insurance [id number] 2011 Unknown [facility] AULTCOMP O [id number] 2011-Present [phone] [address] [address] [place] [address] [facility] [id number] 2010 Medicare [id number] 2010 Medicare MEDICARE MEDICAR E A AND B [id number] 2010-Present [phone] [place] [address] Medicare [id number] 2010 Medicare [id number] 1945 Unknown [id number] 1945 Unknown [id number] Social History Date Type Detail Facility Start: 07-16-2011 Tobacco smoking stat [facility] Never smoked tobacco [facility] Start: 08-19-2021 Alcohol intake Current non-dr manager technical services of alcohol (finding) [facility] Start: 1945 Sex Assigned At Female C [facility] Start: 02-09-2022 End: 06-03-2022 Exposure to SARS-CoV-2 (event) Unable to assess [facility] Work Phone: Start: 07-16-2011 Tobacco use and exposure Smokeless tobacco non-user [facility] Start: 10-21-2020 End: 08-19-2021 History of Social function [facility] Start: 10-21-2020 End: 08-19-2021 Tobacco use panel [facility] National Score (1-10 0), lower number is lower risk Not on file [facility] Start: 08-09-2019 Gender identity Identifies as female gender (finding) [facility] Start: 08-09-2019 Sexual orientation Heterosexual (danielle ghotra) [facility] Clinical Notes 04-29-2012 to 07-27-2023 Telephone Encounter - Jennifer Tuttle - 07/27/2023 11:53 AM EDTTelephone Encounter - Jennifer Tuttle - 08/28/2022 1:44 PM Pedro Curry RN - 07/08/2022 12:20 PM EDT Note Date & Type Note Facility 07-27-2023 Miscellaneous Notes Formattin g of this note is different from the original. Call from pharmacy requesting refill. Requested Prescriptions Pending Prescriptions Disp Refills rivaroxaban (XARELTO) 20 mg tablet 90 tablet 4 Sig: Take 1 tablet by mouth once daily. Patient last seen 03/07 Jennifer Tuttle documented in this encounter [facility] 08-28-2022 Miscellaneous Notes Formattin g of this note might be different from the original. Spoke with patient and she was given another dose of Metoprolol 50 mg while she was in the ER over in [place] on 08/25/22. Please call patient, I can't locate anything in the notes from that stay. Jennifer Tuttle documented in this encounter [facility] 08-25-2022 Miscellaneous Notes Summary: atrial fibrillation Took a call from Physician at [place] ER in Dr. Reese's absence. Pt presented there due to increased urination, a sign of her AF. She was then noted to be in AF with VR in the 120 range. They gave some IV metoprolol and it slowed her down. Physician wanted to know if they need to cardiovert or she can be observed for self conversion. She was arranged to have DCC in May when she went into AF, but self converted prior to having the DCC. I indicated that either DCC now in ER or wait a few days would be fine options. She should send us a remote in 2-3 days and if still in AF, we can arrange a DCC as well. Her metoprolol, currently at 25 BID can be double for the time being until conversion. She has a pacer implanted for SSS, so low rates are controlled. I will update Dr. Will Barbosa MD documented in this encounter [facility] 08-25-2022 Miscellaneous Notes Formattin g of this note might be different from the original. August 25, 2022 Patient Contact Number: [phone] (ED-Dr. Lowry) Patient last seen within the last year: No 02/13/21 Reason For Call: Arrythmia/Palpitations Patient is in the ER in [place]. Please call doctor listed above. Physician:Fareed Reese MD Patient was informed that non-urgent calls may be returned within the next two business days. Yes Jennifer Tuttle documented in this encounter [facility] 07-31-2022 Miscellaneous Notes Formattin g of this note is different from the original. Call from pharmacy requesting refill. Requested Prescriptions Pending Prescriptions Disp Refills rivaroxaban (XARELTO) 20 mg tablet [Pharmacy Med Name: XARELTO 20 MG TABLET] 90 tablet 3 Sig: Take 1 tablet by mouth once daily. Patient last seen 02/13/21 Jennifer Tuttle documented in this encounter [facility] 07-08-2022 History of Presen [place] [address] Patient: Mary Lanier Patient Address: [address] [place] [address] Preferred Gender: female Date of : 1945 Type of Stoma: End Ileostomy Diagnosis: Colon Cancer C18.9 OSTOMY SUPPLY ORDER FORM Belt: NuHope NuForm Hernia Support Belt #[id number] Cool Comfort 6 width 30 day use - 2 per year Refills: 11 Attending Physician: Dr. Tobias For immediate authorization, please contact the physician s office. [facility] Nurse: JAMIR Dye, CWOCN SIGNATURE: Vivian Curry RN PATIENT NAME: Mary Lanier DATE: July 08, 2022 TIME: 12:41 PM CONTACT #: [phone] EMAIL: [email or web address] [facility] Nursing Consult Topic: [facility] Consultation Note Outcome: Pt to A30 for yearly appointment with [facility] nursing. She has an established ileostomy for many years. Pt reports no issues with pouching system or with stoma. She changes her pouch every 3 days. Overall pouching system is appropriate. I did recommend she wear a stoma belt which she agreed with. 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 Pt has an established relationship with [employer] for supplies. Order form for new hernia belt faxed to [employer]. Fax confirmation received. All needs addressed. Next Scheduled Visit: yearly and as needed Assessment: Stoma Type: End ileostomy Diameter: 7/8 Location: RLQ Protrusion: Budded Mucosal condition and color: Red and moist Mucocutaneous junction Intact Peristomal Skin: Clear and intact Peristomal contour: Rounded, slightly bulging when upright consistent with peristomal hernia. Mild depression below stoma. Supportive Tissue: Semisoft Character of output: thick light brown liquid Emptying frequency per day: varies Current pouching system: 1 3/4 [place]re New Image convex pre-cut 7/8 flange. Moldable ring. Drainable pouch. Framed with Coloplast Brava elastic barrier strips. Current wearing time: 4 days Recommendations: Skin Care: dusted with ConvaTec Stomahesive powder followed by 3m Cavilon no-sting skin sealant Pouching System: continue same, added stoma belt Wear Time Goal: 3-4 days Time Increment: 1 hour ROSI DyeN, RN, CWOCN documented in this encounter [facility] 05-05-2022 Miscellaneous Notes Pending Prescriptions Disp Refills METOPROLOL TARTRATE 25 MG TABLET 180 tablet 3 Sig: TAKE 1 TABLET BY MOUTH TWICE A DAY MOUNA: Yes documented in this encounter [facility] 02-18-2022 Nurse Note 02/18/2022 10:08 AM IV Access: IV IV Site: left Hand IV GAUGE 24 gauge IV Removal Date 02/18/2022 Time 1000 Reactions: WNL Order reviewed by nurse:yes Medications: Definity - dosage 1cc solution Reaction: No documented in this encounter [facility] documented as of this encounter (statuses as of 02/19/2022) [facility] History of Past illness Narrative* Problem Noted Date Resolved Date Sprain of lateral collateral ligament of knee 04/29/2012 documented as of this encounter (statuses as of 03/24/2022) [facility] History of Past illness Narrative* Problem Noted Date Resolved Date Sprain of lateral collateral ligament of knee 04/29/2012 documented as of this encounter (statuses as of 05/05/2022) [facility] History of Past illness Narrative* Problem Noted Date Resolved Date Sprain of lateral collateral ligament of knee 04/29/2012 documented as of this encounter (statuses as of 05/23/2022) [facility] History of Past illness Narrative* Problem Noted Date Resolved Date Sprain of lateral collateral ligament of knee 04/29/2012 documented as of this encounter (statuses as of 06/17/2022) [facility] History of Past illness Narrative* Problem Noted Date Resolved Date Sprain of lateral collateral ligament of knee 04/29/2012 documented as of this encounter (statuses as of 07/08/2022) [facility] History of Past illness Narrative* Problem Noted Date Resolved Date Sprain of lateral collateral ligament of knee 04/29/2012 documented as of this encounter (statuses as of 07/31/2022) [facility] History of Past illness Narrative* Problem Noted Date Resolved Date Sprain of lateral collateral ligament of knee 04/29/2012 documented as of this encounter (statuses as of 08/25/2022) [facility] History of Past illness Narrative* Problem Noted Date Resolved Date Sprain of lateral collateral ligament of knee 04/29/2012 documented as of this encounter (statuses as of 08/28/2022) [facility] History of Past illness Narrative* Problem Noted Date Resolved Date Sprain of lateral collateral ligament of knee 04/29/2012 documented as of this encounter (statuses as of 09/03/2022) [facility] History of Past illness Narrative* Problem Noted Date Resolved Date Sprain of lateral collateral ligament of knee 04/29/2012 documented as of this encounter (statuses as of 03/24/2023) [facility] History of Past illness Narrative* Problem Noted Date Diagnosed Date Resolved Date Sprain of lateral collateral ligament of knee 04/29/20 12 04/29/2012 documented as of this encounter (statuses as of 06/23/2023) [facility] History of Past illness Narrative* Problem Noted Date Diagnosed Date Resolved Date Sprain of lateral collateral ligament of knee 04/29/20 12 04/29/2012 documented as of this encounter (statuses as of 07/28/2023) [facility] History of Past illness Narrative* Problem Noted Date Diagnosed Date Resolved Date Sprain of lateral collateral ligament of knee 04/29/20 12 04/29/2012 documented as of this encounter (statuses as of 09/17/2023) [facility] Diagnosis Atrial fibrillation, persistent (HCC) Atrial fibrillation [facility] Diagnosis Attention to ileostomy (HCC)- Primary Attention to ileostomy [facility]* Outpatient Procedure (Routine) - Closed Specialty Diagnoses / Procedures Referred By Contac t Referred To [facility] Diagnoses Atrial fibrillation, persistent (HCC) Procedures ECHO TTE W/DOPPLER, COMPLETE Fareed Reese MD [address] [place] [address] [facility] [address] [place] [address] Referral ID Status Reason Start Date Expiration Date V isits Requested Visits Authorized [id number] Closed Auto-Generate d Referral 08/19/2021 08/19/2022 1 1 [facility] Summary Purpose Family History No Family History Records FoundNo Family History Records FoundNo Family History Records FoundNo Family History Records FoundNo Family History Records Found Advance Directives No Advanced Directives Records FoundDocuments on File Type Date Recorded Patient [employer] Leaf Roller Expl anation Advance Directive(s) 03/14/2021 5:41 PM Documents on File Type Date Recorded Patient [employer] Roller Expl anation Advance Directive(s) 03/14/2021 5:41 PM Documents on File Type Date Recorded Patient [employer] Roller Expl anation Advance Directive(s) 05/17/2022 8:30 PM Advance Directive(s) 03/14/2021 5:41 PM Medications Administered Section Inactive Administered Medications - up to 3 most recent administrations Medication Order MAR Action Action Date Dose Rate Site perflutren lipid microspheres 1.3 mL in NaCl (PF) 0.9% 10 mL injection (DEFINITY) INTRAVENOUS, DIRECTED NEEDED, 1 dose, Starting on Thu08/19/21 at 1040, Until Thu02/18/22 at 1005, Per Protocol - for use during ECHO procedure only, If no IV access, insert saline lock prior to administering contrast. Discontinue saline lock post exam. If patient has central line or IVAD, may access for administration according to line specific nursing protocol. Once exam is complete, flush line and de-access per line specific nursing protocol.Dilute 1.3 ml of Definity with 8.7 ml of preservative-free saline. Given 02/18/2022 10:05 AM EDT 1 mL sodium chloride 0.9 % (flush) 10 mL (BD POSIFLUSH) 10 mL, INTRAVENOUS, DIRECTED NEEDED, 1 dose, Starting on Thu08/19/21 at 1040, Until Thu02/18/22 at 1007, Per Protocol - for use during ECHO procedure only, no IV access, insert saline lock prior to administering contrast. Discontinue saline lock post exam. If patient has central line or IVAD, may access for administration according to line specific nursing protocol. Once exam is complete, flush line and de-access per line specific nursing protocol. Given 02/18/2022 10:07 AM EDT 10 mL Additional Source Comments INFORMATION SOURCE (unrecogn ized section and content) DATE CREATED AUTHOR AUTHOR'S ORGANIZ ATION 11/03/2021 [facility] DATE CREATED AUTHOR AUTHOR'S ORGANIZ ATION 05/18/2022 [facility] DATE CREATED AUTHOR AUTHOR'S ORGANIZ ATION 05/12/2023 [facility] DATE CREATED AUTHOR AUTHOR'S ORGANIZ ATION 10/26/2023 [facility] Source Comments (unrecognize d section and content) In the event this informatio n is protected by the Federal Confidentiality of Alcohol and Drug Abuse Patient Records regulations: The Federal rules restrict any use of the information to criminally investigate or prosecute any alcohol or drug abuse patient.[facility] the event this information is protected by the Federal Confidentiality of Alcohol and Drug Abuse Patient Records regulations: The Federal rules restrict any use of the information to criminally investigate or prosecute any alcohol or drug abuse patient.[facility] HealthIn the event this information is protected by the Federal Confidentiality of Alcohol and Drug Abuse Patient Records regulations: The Federal rules restrict any use of the information to criminally investigate or prosecute any alcohol or drug abuse patient.[facility] HealthIn the event this information is protected by the Federal Confidentiality of Alcohol and Drug Abuse Patient Records regulations: The Federal rules restrict any use of the information to criminally investigate or prosecute any alcohol or drug abuse patient.[facility] HealthIn the event this information is protected by the Federal Confidentiality of Alcohol and Drug Abuse Patient Records regulations: The Federal rules restrict any use of the information to criminally investigate or prosecute any alcohol or drug abuse patient.[facility] HealthIn the event this information is protected by the Federal Confidentiality of Alcohol and Drug Abuse Patient Records regulations: The Federal rules restrict any use of the information to criminally investigate or prosecute any alcohol or drug abuse patient.[facility] HealthIn the event this information is protected by the Federal Confidentiality of Alcohol and Drug Abuse Patient Records regulations: The Federal rules restrict any use of the information to criminally investigate or prosecute any alcohol or drug abuse patient.[facility] HealthIn the event this information is protected by the Federal Confidentiality of Alcohol and Drug Abuse Patient Records regulations: The Federal rules restrict any use of the information to criminally investigate or prosecute any alcohol or drug abuse patient.[facility] HealthIn the event this information is protected by the Federal Confidentiality of Alcohol and Drug Abuse Patient Records regulations: The Federal rules restrict any use of the information to criminally investigate or prosecute any alcohol or drug abuse patient.[facility] HealthIn the event this information is protected by the Federal Confidentiality of Alcohol and Drug Abuse Patient Records regulations: The Federal rules restrict any use of the information to criminally investigate or prosecute any alcohol or drug abuse patient.[facility] HealthIn the event this information is protected by the Federal Confidentiality of Alcohol and Drug Abuse Patient Records regulations: The Federal rules restrict any use of the information to criminally investigate or prosecute any alcohol or drug abuse patient.[facility] HealthIn the event this information is protected by the Federal Confidentiality of Alcohol and Drug Abuse Patient Records regulations: The Federal rules restrict any use of the information to criminally investigate or prosecute any alcohol or drug abuse patient.[facility] HealthIn the event this information is protected by the Federal Confidentiality of Alcohol and Drug Abuse Patient Records regulations: The Federal rules restrict any use of the information to criminally investigate or prosecute any alcohol or drug abuse patient.[facility] HealthIn the event this information is protected by the Federal Confidentiality of Alcohol and Drug Abuse Patient Records regulations: The Federal rules restrict any use of the information to criminally investigate or prosecute any alcohol or drug abuse patient.[facility] HealthIn the event this information is protected by the Federal Confidentiality of Alcohol and Drug Abuse Patient Records regulations: The Federal rules restrict any use of the information to criminally investigate or prosecute any alcohol or drug abuse patient.[facility] Care Teams (unrecognized sec tion and content) Air Conditioning Service Technician Relationship Specialty Start Date End Date Jens Mays MD PCP - General 03/12/10 Air Conditioning Service Technician Relationship Specialty Start Date End Date Jens Mays MD PCP - General 03/12/10 Air Conditioning Service Technician Relationship Specialty Start Date End Date Jens Mays MD PCP - General 03/12/10 Air Conditioning Service Technician Relationship Specialty Start Date End Date Jens Mays MD PCP - General 03/12/10 Air Conditioning Service Technician Relationship Specialty Start Date End Date Jens Mays MD PCP - General 03/12/10 Fareed Reese MD [address] [place] [address] Cardiology 08/25/22 Air Conditioning Service Technician Relationship Specialty Start Date End Date Jens Mays MD PCP - General 03/12/10 Fareed Reese MD [address] [place] [address] Cardiology 08/25/22 Air Conditioning Service Technician Relationship Specialty Start Date End Date Jens Mays MD PCP - General 03/12/10 Fareed Reese MD [address] [place] [address] Cardiology 08/25/22 Air Conditioning Service Technician Relationship Specialty Start Date End Date Jens Mays MD PCP - General 03/12/10 Fareed Reese MD [address] [place] [address] Cardiology 08/25/22 Air Conditioning Service Technician Relationship Specialty Start Date End Date Jens Mays MD PCP - General 03/12/10 Fareed Reese MD [address] [place] [address] Cardiology 08/25/22 Air Conditioning Service Technician Relationship Specialty Start Date End Date Jens Mays MD PCP - General 03/12/10 Fareed Reese MD [address] [place] [address] Cardiology 08/25/22 Reason for Visit (unrecogniz ed section and content) 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 This clinical summary was aggregated from multiple sources. Caution should be exercised in using it in the provision of clinical care. This summary normalizes information from multiple sources, and as a consequence, information in this document may materially change the coding, format and clinical context of patient data. In addition, data may be omitted in some cases. CLINICAL DECISIONS SHOULD BE BASED ON THE PRIMARY CLINICAL RECORDS. [employer] [facility]. provides no warranty or guarantee of the accuracy or completeness of information in this document.
[2023-11-22 12:37] LABS: Troponin-I HS 62 pg/mL (3.0-54.0)
[2023-11-22 13:00] VITALS: BP 115/69; PULSE 63; RESP 16; O2SAT 98
[2023-11-22 14:00] VITALS: BP 98/48; PULSE 64; RESP 16; O2SAT 96
[2023-11-22 14:42] LABS: Troponin-I HS 57 pg/mL (3.0-54.0)
[2023-11-22 15:00] VITALS: BP 102/50; PULSE 65; RESP 16; O2SAT 96
== END 2023-11-22 15:00 | disposition home or self-care (01) ==
PROVIDERS: Emergency Provider Emergency Medicine; PCP Family Medicine; Visit Provider Emergency Medicine
DX: R00.2 Palpitations (principal); I48.91 Unspecified atrial fibrillation; Z95.0 Presence of cardiac pacemaker; Z79.01 Long term (current) use of anticoagulants
CPT/HCPCS: 71045; 80048; 84484; 85025; 93005; 99283; A4216

== ENCOUNTER → 2024-08-11 | Outpatient (CLI) | payer MEDICARE, OTHER, SELFPAY ==
[2024-08-11 13:16] LABS: ALB/GLOB Ratio 0.9 RATIO (0.9-2.4); AST(SGOT) 12 U/L (15-37); Alanine Aminotransfer ALT/SGPT 14 U/L (13-56); Albumin, Serum 3.4 g/dL (3.2-5.0); Alkaline Phosphatase 95 U/L (45-117); Anion Gap 3 (5-15); BUN 12 mg/dL (7-18); BUN/Creat Ratio 12.8 RATIO (10-20); Calcium,Total 9.3 mg/dL (8.5-10.1); Chloride 112 mmol/L (98-107); Cholesterol 181 mg/dL (200); Creatinine, Serum 0.94 mg/dL (0.55-1.02); EST Glomerular Filtration Rate 61 mL/min (>60); Est Glom Filt Rate - Afr Amer 74 mL/min (>60); Globulin 3.7 g/dL (2.2-4.2); Glucose 101 mg/dL (74-106); High Density Lipoprotein 62 mg/dL; Potassium 4.1 mmol/L (3.5-5.1); Protein, Total 7.1 g/dL (6.4-8.2); Sodium Level 142 mmol/L (136-145); Triglycerides 66 mg/dL; Very Low Density Lipoprotein 13 mg/dL (5-40)
== END | disposition home or self-care (01) ==
LOC: LAB 11:26
PROVIDERS: PCP Family Medicine; Referring Provider Internal Medicine Cardiovascular Disease; Visit Provider Internal Medicine Cardiovascular Disease
DX: I10 Essential (primary) hypertension (principal); I48.0 Paroxysmal atrial fibrillation; I25.10 Atherosclerotic heart disease of native coronary artery without angina pectoris
CPT/HCPCS: 36415; 80053; 80061; 84443

== ENCOUNTER → 2024-08-29 | Outpatient (CLI) | payer MEDICARE, OTHER, SELFPAY ==
--- NOTE | 2024-08-29 07:07 | ECHOCS_ITS ---
Reason For Study: FATIGUE Procedure This was a 2D Doppler, Color Flow transthoracic echocardiogram. The study was technically difficult. Contrast injection was performed. Exam performed in department. Left Ventricle Normal size and thickness. The left ventricular ejection fraction is 60 %. Diastolic function is indeterminate. Right Ventricle Normal right ventricle. There is a pacemaker lead in the right ventricle. Atria The left atrium is severely enlarged. The right atrium is mildly enlarged. ICD or pacer leads identified within the right atrium. Mitral Valve Moderate mitral annular calcification. Trivial mitral valve insufficiency. Tricuspid Valve Trivial tricuspid valve insufficiency. Right ventricular systolic pressure estimated to be 37 mmHg. Aortic Valve Trisinus/trileaflet aortic valve. Pulmonic Valve The pulmonic valve is not well visualized. Pericardium/Pleural No pericardial effusion. Medication Diluted definity 2ml given slow IV push to enhance endocardial definition. MMode/2D Measurements & Calculations LVIDd: 4.8 cm IVSd: 1.1 cm LVOT diam: 2.0 cm LVIDs: 3.2 cm LVPWd: 1.1 cm LVOT area: 3.2 cm2 FS: 33.3 % Ao root diam: 2.9 cm LAV(MOD-bp): 51.7 ml LVAd ap4: 29.4 cm2 LAV(MOD-bp) Indexed: 25.2 ml/m2 LVLd ap4: 7.0 cm LAV(MOD-sp2): 31.8 ml EDV(MOD-sp4): 103.3 ml LAV(MOD-sp4): 73.5 ml EDV(sp4-el): 105.2 ml LVAs ap4: 15.6 cm2 LVLs ap4: 5.6 cm ESV(MOD-sp4): 36.6 ml ESV(sp4-el): 36.9 ml EF(MOD-sp4): 64.6 % EF(sp4-el): 64.9 % SV(MOD-sp4): 66.7 ml SV(sp4-el): 68.3 ml LA A4 area: 23.6 cm2 LA dimension(2D): 4.5 cm RA A4 area: 19.9 cm2 TAPSE: 2.4 cm Time Measurements MV dec time: 0.21 sec Doppler Measurements & Calculations MV E max brenton: 120.4 cm/sec Lat Peak E' Brenton: 8.0 cm/sec Med Peak E' Brenton: 5.3 cm/sec MV A max brenton: 89.3 cm/sec E/E' lat: 15.0 E/E' med: 22.5 MV E/A: 1.3 MV V2 max: 131.2 cm/sec Ao V2 max: 139.5 cm/sec MV max P.9 mmHg MV dec slope: 583.4 cm/sec2 Ao max P.8 mmHg MV V2 mean: 66.0 cm/sec Ao V2 mean: 95.6 cm/sec MV mean P.2 mmHg Ao mean P.2 mmHg MV V2 VTI: 45.7 cm Ao V2 VTI: 35.9 cm AV (velocity ratio): 0.80 MVA(VTI): 2.0 cm2 KARINA(I,D): 2.6 cm2 KARINA(V,D): 2.8 cm2 LV V1 max: 121.4 cm/sec SV(LVOT): 93.0 ml PA V2 max: 70.0 cm/sec LV V1 max P.9 mmHg PA V2 mean: 50.4 cm/sec LV V1 mean P.1 mmHg LV V1 mean: 82.1 cm/sec LV V1 VTI: 28.8 cm TR max brenton: 281.7 cm/sec TR max P.7 mmHg ECHO/Echo Complete W/ Contrast Interpretation Summary The left ventricular ejection fraction is 60 %. Diastolic function is indeterminate. The left atrium is severely enlarged. The right atrium is mildly enlarged. Moderate mitral annular calcification. Right ventricular systolic pressure estimated to be 37 mmHg. Ordering Physician: Domitila Vegas Referring Physician: Domitila Vegas Performed By: Jeny Santana and Student
--- NOTE | 2024-09-01 16:21 | STRESSREP_ITS ---
Stress Test Report Date: 08/29/2024 Procedure: Pharmacologic stress nuclear imaging study Indications: Dyspnea on exertion Consent: Per the patient Procedure: The patient underwent pharmacologic (Regadenoson 0.4mg ) evaluation with a peak heart rate of 82 beats per minute (58%predicted maximal heart rate) and a peak blood pressure of 132/70 mmHg. The baseline ECG demonstrated electronic ventricular pacemaker. The peak pharmacologic ECG demonstrated no diagnostic changes. There were no cardiac dysrhythmias pretest, during pharmacologic infusion, or recovery. There was no complaint of chest discomfort during pharmacologic infusion or recovery. The patient was injected with 14.9 millicuries of technetium 99m Cardiolite and subsequently rest SPECT Cardiolite nuclear imaging was obtained in the horizontal long, vertical long, and short axis views. The patient underwent pharmacologic (Regadenoson) evaluation. The patient was injected with 44.4 millicuries of technetium 99m Cardiolite and subsequently stress SPECT Cardiolite nuclear imaging was obtained in the horizontal long, vertical long, and short axis views. A gated Cardiolite study at peak stress was obtained. The examination was stopped secondary to completion of protocol. Rest and stress SPECT Cardiolite nuclear imaging status post realignment, normalization, and attenuation correction demonstrate no fixed or reversible perfusion defects. There is end systolic thickening and brightening. The gated Cardiolite study demonstrates myocardial thickening and inward wall motion. The reported LVEF is 64%. Impression: 1. Pharmacologic (Regadenoson) evaluation 2. Peak pharmacologic ECG with no diagnostic changes secondary to electronic ventricular paced rhythm. 3. There were no cardiac dysrhythmias pretest, during pharmacologic infusion, or recovery. 5. Rest and stress SPECT Cardiolite nuclear imaging demonstrate relative uniform tracer uptake and myocardial perfusion appearing within normal limits. 6. The gated Cardiolite study reports an LVEF of 64%. This note was generated with [employer] software. It may contain incorrect words, spelling, and punctuation that were not noted in checking the note before signing.
== END | disposition home or self-care (01) ==
LOC: CVS 07:04
PROVIDERS: PCP Family Medicine; Referring Provider Internal Medicine Cardiovascular Disease; Visit Provider Internal Medicine Cardiovascular Disease
DX: R06.09 Other forms of dyspnea (principal); I48.0 Paroxysmal atrial fibrillation; I10 Essential (primary) hypertension
CPT/HCPCS: 78452; 93017; 93306; A9500; Q9957; A4216; C8929; J2785

== ENCOUNTER → 2024-10-18 | Outpatient (CLI) | payer MEDICARE, OTHER, SELFPAY ==
[2024-10-18 10:31] LABS: Anion Gap 0 (5-15); BUN 12 mg/dL (7-18); BUN/Creat Ratio 13.3 RATIO (10-20); Calcium,Total 9.4 mg/dL (8.5-10.1); Chloride 110 mmol/L (98-107); EST Glomerular Filtration Rate 64 mL/min (>60); Est Glom Filt Rate - Afr Amer 78 mL/min (>60); Glucose 103 mg/dL (74-106); Potassium 3.9 mmol/L (3.5-5.1); Sodium Level 141 mmol/L (136-145)
== END | disposition home or self-care (01) ==
LOC: LAB 09:51
PROVIDERS: PCP Family Medicine; Referring Provider Internal Medicine Cardiovascular Disease; Visit Provider Internal Medicine Cardiovascular Disease
DX: I10 Essential (primary) hypertension (principal)
CPT/HCPCS: 36415; 80048

== ENCOUNTER 2025-02-23 19:09 | Emergency (ER) | payer MEDICARE, OTHER, SELFPAY ==
[2025-02-23] VITALS (15 sets, daily range): BP systolic 102–149; BP diastolic 62–86; PULSE 60–120; RESP 16–19; TEMP 36.3–36.8; O2SAT 94–98; BMI 34.5
--- NOTE | 2025-02-23 19:24 | EKG12_ITS ---
Test Reason : AARTHMIA Blood Pressure : */* mmHG Vent. Rate : 110 BPM Atrial Rate : * BPM P-R Int : * ms QRS Dur : 154 ms QT Int : 362 ms P-R-T Axes : * -44 108 degrees QTcB Int : 489 ms Atrial fibrillation with rapid ventricular response Left axis deviation Left bundle branch block Abnormal ECG Confirmed by Trent Erickson ([id number]), video tape editor VEDA CLARK ([id number]) on 02/27/2025 6:48:05 AM Referred By: NASIMA Confirmed By: Trent Erickson
--- NOTE | 2025-02-23 19:27 | RAD_ITS ---
PROCEDURE: CHEST 1 VIEW (PORTABLE) 02/23/2025 REASON FOR EXAM: CHEST PAIN TECHNIQUE: Frontal view of the chest. COMPARISON: None FINDINGS: Hardware: Left-sided ICD. Heart: Mild cardiomegaly. Atherosclerotic calcification of the aortic arch. Lungs: No focal consolidation. No pneumothorax. No pleural effusion. Bones: Degenerative changes are identified within the thoracic spine. Other: RAD/Chest 1 View (Portable) IMPRESSION: No Acute Findings. Reading Location: [facility]
[2025-02-23 19:38] LABS: Absolute Lymphocyte Count 2.24 X10^3/uL (0.83-4.51); Absolute Neutrophil Count 5.8 X10^3/uL (2.0-7.7); Basophil# 0.06 X10^3/uL; Basophil% 0.7 % (0-1); Eosinophil# 0.29 X10^3/uL; Eosinophils% 3.2 % (0-5); Hematocrit 37.8 % (37-47); Hemoglobin 12.4 g/dL (12.0-15.0); Lymphocyte # 2.24 X10^3/ul (0.83-4.51); Lymphocyte % 24.7 % (19-41); Mean Corp Hgb Conc 32.8 g/dL (32-36); Mean Corpuscular Hgb 29.9 pg (27.0-32.0); Mean Corpuscular Volume 91.1 fL (81-99); Mean Platelet Vol. 10.9 fl (6.2-12.0); Monocyte# 0.69 X10^3/uL; Monocyte% 7.6 % (0-10); NRBC Flagged by Analyzer 0 % (0-5); Neutrophil # 5.75 X10^3/uL (2.7-7.7); Neutrophil % 63.5 % (47-70); Platelet Count 219 K/mm3 (150-450); RBC Distribution Width CV 13.8 % (11.6-14.6); RBC Distribution Width SD 46.3 fl (35.1-43.9); Red Blood Count 4.15 M/mm3 (4.2-5.4); White Blood Count 9.1 K/mm3 (4.4-11.0)
[2025-02-23 20:17] LABS: Anion Gap 13 (5-15); BUN 19 mg/dL (4-19); Calcium,Total 9.1 mg/dL (7.6-11.0); Carbon Dioxide 17.5 mmol/L (21.0-32.0); Chloride 109 mmol/L (98-108); Creatinine, Serum 1.12 mg/dL (0.70-1.20); EST Glomerular Filtration Rate 50 (>60); Estimated Creatinine Clearance 47.83 ml/min (50-250); Glucose 102 mg/dL (70-99); Potassium 4.5 mmol/L (3.3-5.1); Sodium Level 139 mmol/L (133-145); Troponin T High Sensitivity 18 ng/L (<=14)
[2025-02-23] MEDS: 0.9% Normal Saline (500mL Bag) 500 ML 999 ML IV (20:59)
[2025-02-23] MEDS: Metoprolol Tartrate 5 MG/5 ML Vial IV ×3 (20:59→21:26)
[2025-02-23 21:12] LABS: Blood Gas Specimen Type VEN; O2 Delivery Device Not entered; SITE Not entered; VBG BASE EXCESS 0 mmol/L (-1.0-3.5); VBG Bicarbonate 25 mmol/L (22-26); VBG PO2 33 mmHg (25-40); VBG SO2 62 % (50-70); VBG TCO2 27 mmol/L (23-33); VBG pCO2 42.9 mmHg (41-51); VBG pH 7.38 (7.32-7.42)
[2025-02-23 21:23] LABS: Magnesium 1.9 mg/dL (1.5-2.2)
[2025-02-23 21:54] LABS: Troponin T High Sens 2 HR 17 ng/L (<=14)
[2025-02-23] MEDS: Etomidate 20 MG/10 ML Vial 10 MG IV (22:49)
--- NOTE | 2025-02-23 22:52 | EKG12_ITS ---
Test Reason : RYTHM CHANGE Blood Pressure : */* mmHG Vent. Rate : 61 BPM Atrial Rate : 61 BPM P-R Int : 98 ms QRS Dur : 156 ms QT Int : 458 ms P-R-T Axes : * -33 214 degrees QTcB Int : 461 ms AV dual-paced rhythm Abnormal ECG Confirmed by Trent Erickson ([id number]), editorial specialist VEDA CLARK ([id number]) on 02/27/2025 6:50:14 AM Referred By: NASIMA Confirmed By: Trent Erickson
--- NOTE | 2025-02-23 23:21 | EX.ED.DYSGE1 ---
HPI History of Present Illness Chief Complaint: Palpitations Informant: patient Narrative Narrative: Patient is 79-year-old female with history of BARRIE, proximal atrial fibrillation, sick sinus syndrome status post pacemaker, left bundle branch block presenting with concern of atrial fibrillation. She states it started this morning. She has been feeling tired and exhausted today. She notes this morning she felt dizzy. She notes that some of her chest discomfort could be muscle skeletal as she was working with a horse yesterday in the barn. She has had some dyspnea on exertion today only. Said some mild increase swelling of her legs but notes she ate more salt yesterday. Denies any urinary symptoms. Denies any cough but has had some slight sinus drainage (influenza 2 weeks ago). Since then she has had intermittent nausea but not clammy bad nausea today. 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 [facility] Medical History Essential hypertension LBBB (left bundle branch block) History of colon cancer Osteoporosis CKD (chronic kidney disease) Hypothyroidism BARRIE (obstructive sleep apnea) Paroxysmal atrial fibrillation Home Medications ?Medication ?Instructions ?Recorded ?Last Taken ?Type levothyroxine 112 mcg tablet 112 mcg PO DAILY 11/22/23 Unknown History acetaminophen 500 mg tablet 500 mg PO Q4H PRN fever or pain 07/25/24 Unknown History albuterol sulfate 90 mcg/actuation 2 puff inhalation Q4-6H PRN 07/25/24 Unknown History aerosol inhaler (Ventolin HFA) shortness of breath or wheezing multivitamin 1 tab PO QAM 07/25/24 Unknown History vitamins A,C,Q-qtsr-kbasbz 2,148 1 tab PO DAILY 07/25/24 Unknown History mcg-113 mg-45 mg-17.4 mg tablet rivaroxaban 20 mg tablet (Xarelto) 20 mg PO Q24H #90 tabs 08/30/24 Unknown Rx metoprolol tartrate 100 mg tablet 100 mg PO BID #90 tabs 10/18/24 Unknown Rx Allergy/AdvReac Type Severity Reaction Status Date / Time levofloxacin (From Levaquin) Allergy Unknown peripheral Verified 02/23/25 19:12 neuropathy azithromycin (From Zithromax) Allergy Angioedema Verified 02/23/25 19:12 Cephalosporins Allergy Swelling Verified 02/23/25 19:12 lisinopril AdvReac cough Verified 02/23/25 19:12 Family History Other Colon cancer Surgical History History of esophagogastroduodenoscopy (EGD) History of colonoscopy History of cholecystectomy History of tubal ligation H/O right cataract extraction Hx of atrioventricular node ablation Presence of permanent cardiac pacemaker Ileostomy status Social History Smoking Status: Never smoker alcohol intake: never substance use type: does not use caffeine: Yes Type: coffee Number of servings: 3 ROS ROS ED Constitutional Constitutional ED: Reports other Details: Fatigue ; Denies chills or fever(s) ENT ENT ED: Denies sore throat Cardiovascular Cardiovascular: Reports racing heartbeat; Denies chest pain Respiratory/Chest Respiratory/Chest: Reports cough, dyspnea and dyspnea on exertion Gastrointestinal Gastrointestinal: Reports nausea and other Details: Increased ileostomy output ; Denies vomiting Musculoskeletal Musculoskeletal: Denies arthralgias or myalgias Integumentary Denies rash Neurologic Neurologic: Reports weakness; Denies headache(s) or paresthesias Hematologic/Lymphatic Hematologic/Lymphatic: Reports easy bleeding, easy bruising and other Details: On Xarelto EXAM Physical Exam Const Vital Signs: 02/23/25 19:10 02/23/25 19:21 02/23/25 19:26 Temperature 97.3 F L Temperature Source Oral Pulse Rate 93 Pulse Rate [1 (Initial Baseline)] Pulse Rate [2] Pulse Rate [3] Pulse Rate [4] Respiratory Rate 19 H Respiratory Rate [1 (Initial Baseline)] Respiratory Rate [2] Respiratory Rate [3] Respiratory Rate [4] Respiratory Effort Normal Non-Labored Respiratory Pattern Normal Blood Pressure 149/86 H Blood Pressure [1 (Initial Baseline)] Blood Pressure [3] Blood Pressure Mean 107 Baseline BP Pulse Ox 97 96 Oxygen Delivery Method Room Air Oxygen Delivery Method [1 (Initial Baseline)] Oxygen Delivery Method [2] Oxygen Delivery Method [3] Oxygen Delivery Method [4] EtCo2 (Normal 35-45 , high quality CPR 10-20 & ROSC>/=40mmHg EtCo2 (Normal 35-45 , high quality CPR 10-20 & ROSC>/=40mmHg [1 (Initial Baseline)] EtCo2 (Normal 35-45 , high quality CPR 10-20 & ROSC>/=40mmHg [2] EtCo2 (Normal 35-45 , high quality CPR 10-20 & ROSC>/=40mmHg [3] EtCo2 (Normal 35-45 , high quality CPR 10-20 & ROSC>/=40mmHg [4] 02/23/25 20:00 02/23/25 21:00 02/23/25 21:15 Temperature Temperature Source Pulse Rate 116 H 111 H 113 H Pulse Rate [1 (Initial Baseline)] Pulse Rate [2] Pulse Rate [3] Pulse Rate [4] Respiratory Rate 18 18 18 Respiratory Rate [1 (Initial Baseline)] Respiratory Rate [2] Respiratory Rate [3] Respiratory Rate [4] Respiratory Effort Respiratory Pattern Blood Pressure 106/73 102/82 H 117/85 H Blood Pressure [1 (Initial Baseline)] Blood Pressure [3] Blood Pressure Mean 84 88 95 Baseline BP Pulse Ox 97 94 95 Oxygen Delivery Method Room Air Room Air Room Air Oxygen Delivery Method [1 (Initial Baseline)] Oxygen Delivery Method [2] Oxygen Delivery Method [3] Oxygen Delivery Method [4] EtCo2 (Normal 35-45 , high quality CPR 10-20 & ROSC>/=40mmHg EtCo2 (Normal 35-45 , high quality CPR 10-20 & ROSC>/=40mmHg [1 (Initial Baseline)] EtCo2 (Normal 35-45 , high quality CPR 10-20 & ROSC>/=40mmHg [2] EtCo2 (Normal 35-45 , high quality CPR 10-20 & ROSC>/=40mmHg [3] EtCo2 (Normal 35-45 , high quality CPR 10-20 & ROSC>/=40mmHg [4] 02/23/25 21:23 02/23/25 22:00 02/23/25 22:27 Temperature Temperature Source Pulse Rate 104 H 104 H Pulse Rate [1 (Initial Baseline)] Pulse Rate [2] Pulse Rate [3] Pulse Rate [4] Respiratory Rate 16 18 Respiratory Rate [1 (Initial Baseline)] Respiratory Rate [2] Respiratory Rate [3] Respiratory Rate [4] Respiratory Effort Respiratory Pattern Blood Pressure 114/83 H 124/75 H Blood Pressure [1 (Initial Baseline)] Blood Pressure [3] Blood Pressure Mean 93 91 Baseline BP Pulse Ox 95 98 Oxygen Delivery Method Room Air Room Air Oxygen Delivery Method [1 (Initial Baseline)] Oxygen Delivery Method [2] Oxygen Delivery Method [3] Oxygen Delivery Method [4] EtCo2 (Normal 35-45 , high quality CPR 10-20 & ROSC>/=40mmHg 33 EtCo2 (Normal 35-45 , high quality CPR 10-20 & ROSC>/=40mmHg [1 (Initial Baseline)] EtCo2 (Normal 35-45 , high quality CPR 10-20 & ROSC>/=40mmHg [2] EtCo2 (Normal 35-45 , high quality CPR 10-20 & ROSC>/=40mmHg [3] EtCo2 (Normal 35-45 , high quality CPR 10-20 & ROSC>/=40mmHg [4] 02/23/25 22:45 02/23/25 22:48 02/23/25 22:51 Temperature 98.2 F Temperature Source Pulse Rate 110 H 60 Pulse Rate [1 (Initial Baseline)] 110 H Pulse Rate [2] 120 H Pulse Rate [3] 66 Pulse Rate [4] 60 Respiratory Rate 18 18 Respiratory Rate [1 (Initial Baseline)] 18 Respiratory Rate [2] 18 Respiratory Rate [3] 18 Respiratory Rate [4] 18 Respiratory Effort Respiratory Pattern Blood Pressure 117/78 131/77 H Blood Pressure [1 (Initial Baseline)] 117/78 Blood Pressure [3] 131/77 H Blood Pressure Mean Baseline BP 117/78 Pulse Ox 97 95 Oxygen Delivery Method Room Air Room Air Oxygen Delivery Method [1 (Initial Baseline)] Room Air Oxygen Delivery Method [2] Room Air Oxygen Delivery Method [3] Room Air Oxygen Delivery Method [4] Room Air EtCo2 (Normal 35-45 , high quality CPR 10-20 & ROSC>/=40mmHg 34 32 EtCo2 (Normal 35-45 , high quality CPR 10-20 & ROSC>/=40mmHg [1 (Initial Baseline)] 34 EtCo2 (Normal 35-45 , high quality CPR 10-20 & ROSC>/=40mmHg [2] 33 EtCo2 (Normal 35-45 , high quality CPR 10-20 & ROSC>/=40mmHg [3] 32 EtCo2 (Normal 35-45 , high quality CPR 10-20 & ROSC>/=40mmHg [4] 34 02/23/25 22:56 02/23/25 23:00 02/23/25 23:01 Temperature Temperature Source Pulse Rate 62 60 60 Pulse Rate [1 (Initial Baseline)] Pulse Rate [2] Pulse Rate [3] Pulse Rate [4] Respiratory Rate 18 18 18 Respiratory Rate [1 (Initial Baseline)] Respiratory Rate [2] Respiratory Rate [3] Respiratory Rate [4] Respiratory Effort Respiratory Pattern Blood Pressure 122/65 H 113/68 113/65 Blood Pressure [1 (Initial Baseline)] Blood Pressure [3] Blood Pressure Mean 83 Baseline BP Pulse Ox 98 97 98 Oxygen Delivery Method Room Air Room Air Room Air Oxygen Delivery Method [1 (Initial Baseline)] Oxygen Delivery Method [2] Oxygen Delivery Method [3] Oxygen Delivery Method [4] EtCo2 (Normal 35-45 , high quality CPR 10-20 & ROSC>/=40mmHg 33 34 EtCo2 (Normal 35-45 , high quality CPR 10-20 & ROSC>/=40mmHg [1 (Initial Baseline)] EtCo2 (Normal 35-45 , high quality CPR 10-20 & ROSC>/=40mmHg [2] EtCo2 (Normal 35-45 , high quality CPR 10-20 & ROSC>/=40mmHg [3] EtCo2 (Normal 35-45 , high quality CPR 10-20 & ROSC>/=40mmHg [4] 02/23/25 23:06 Temperature Temperature Source Pulse Rate 60 Pulse Rate [1 (Initial Baseline)] Pulse Rate [2] Pulse Rate [3] Pulse Rate [4] Respiratory Rate 18 Respiratory Rate [1 (Initial Baseline)] Respiratory Rate [2] Respiratory Rate [3] Respiratory Rate [4] Respiratory Effort Respiratory Pattern Blood Pressure 109/68 Blood Pressure [1 (Initial Baseline)] Blood Pressure [3] Blood Pressure Mean Baseline BP Pulse Ox 97 Oxygen Delivery Method Room Air Oxygen Delivery Method [1 (Initial Baseline)] Oxygen Delivery Method [2] Oxygen Delivery Method [3] Oxygen Delivery Method [4] EtCo2 (Normal 35-45 , high quality CPR 10-20 & ROSC>/=40mmHg 33 EtCo2 (Normal 35-45 , high quality CPR 10-20 & ROSC>/=40mmHg [1 (Initial Baseline)] EtCo2 (Normal 35-45 , high quality CPR 10-20 & ROSC>/=40mmHg [2] EtCo2 (Normal 35-45 , high quality CPR 10-20 & ROSC>/=40mmHg [3] EtCo2 (Normal 35-45 , high quality CPR 10-20 & ROSC>/=40mmHg [4] Positive well nourished and well developed General Appearance ED: well developed and NAD HEENT Reports moist mucous membranes Eyes PERRL Neck supple and no JVD Chest Wall inspection of chest normal and palpation of chest normal Resp normal respiratory effort and clear to auscultation bilaterally Resp Narrative: No crackles appreciate Cardio no murmurs Rate: tachycardic Rhythm: abnormal rhythm irregularly irregular GI normal to inspection, nondistended, normoactive bowel sounds and non-tender GI Narrative: Ileostomy in place Extremity normal to inspection Extremity Narrative: Trace pedal edema present, pitting 1+ Neuro oriented x3 Sensorium / Orientation: alert Motor Exam: Negative for general weakness Psych mental status grossly normal Skin no rashes or lesions noted and no wounds MDM MDM MDM Narrative Medical decision making narrative: Patient evaluated for concern of being in atrial fibrillation. She been feeling weak and short of breath all day. This feels like her prior times of atrial fibrillation. She is chronically anticoagulated on Xarelto does not think she is missed any doses. Differential includes atrial fibrillation, symptomatic anemia, electrolyte abnormality, pneumonia, dehydration, LEA and less likely ACS (not really having any chest pain). Workup including CBC, BMP, magnesium, delta high-sensitivity troponin, EKG and chest x-ray is obtained. CBC largely normal. BMP shows a mildly low bicarb of 17.5 but normal anion gap. VBG added on to verify the bicarb as there has been no recent abnormalities on our chemistry panels with this. The bicarb is 25.2 which I believe is more accurate. I since he troponin stable at 18 and 17. Magnesium is normal. Patient given IV metoprolol with no significant improvement in her heart rate but her blood pressure actually improved with it. Is given a small 500 cc bolus that she had recent illness and reports increased ileostomy output. Decision made to cardiovert as patient is otherwise well-appearing does not receive adequate rate control with medications and is a good candidate as she is chronically anticoagulated, is been compliant with her medication had sudden onset of symptoms within the last 24 hours. Cardioversion performed successfully. I spoke with Dr. Fabian, cardiology on-call who does not recommend any medication adjustments at this time. Will be discharged home to continue taking her home medications. Given return precautions. Instructed to follow-up outpatient with cardiology. Patient is feeling improved to the emergency room. Discharged home in improved and stable condition. History & Record Review Additional record(s) reviewed:: Prior outpatient record (Cardiology note from 10/18/2024-chronic proximal atrial fibrillation follows at pacemaker clinic.) Lab Data Attestation: I reviewed the patient's lab results. Labs: Laboratory Results - last 24 hr 02/23/25 02/23/25 19:24 21:24 WBC 9.1 RBC 4.15 L Hgb 12.4 Hct 37.8 MCV 91.1 MCH 29.9 MCHC 32.8 RDW Std Deviation 46.3 H RDW Coeff of Shanice 13.8 Plt Count 219 MPV 10.9 Immature Gran % (Auto) 0.300 Neut % (Auto) 63.5 Lymph % (Auto) 24.7 [place] % (Auto) 7.6 Eos % (Auto) 3.2 Baso % (Auto) 0.7 Absolute Neuts (auto) 5.8 Absolute Lymphs (auto) 2.24 Nucleated RBC % 0 Sodium 139 Potassium 4.5 Chloride 109 H Carbon Dioxide 17.5 L Anion Gap 13 BUN 19 Creatinine 1.12 Estim Creat Clear Calc 47.83 L Est GFR (MDRD) Non-Af 50 L BUN/Creatinine Ratio 17.0 Glucose 102 H Calcium 9.1 Magnesium 1.9 Troponin T High Sens 18 H Troponin T Hi Sens 2 Hr 17 H ABG Data ABG results: ABG 02/23/25 21:10 Specimen Type IRIS Sample Site Not entered VBG pH 7.38 VBG pO2 33 VBG HCO3 25 VBG Total CO2 27 VBG O2 Sat (Calc) 62 VBG Base Excess 0 POC Mix VBG pCO2 Pt Tmp 42.9 O2 Delivery Device Not entered Radiography Chest X-Ray - ED: 1 View, Read by ED Physician, Read by Radiologist and No Acute Disease Diagnostic Testing: Clinical Impression(s) from Imaging Studies Chest X-Ray 02/23/25 19:27 IMPRESSION: No Acute Findings. [facility] Rhythm Strip Rhythm Strip: A-fib Rate: 110 Ectopy: None EKG Initial EKG: Attestation: I personally reviewed and interpreted this EKG as follows: Interpretation: Atrial Fibrillation Comments: Atrial fibrillation with rapid ventricular response at a rate of 110 bpm Left axis deviation Left bundle branch block Normal ST segments Prior EKG tracings: available for review Prior: Changed (Patient now has left bundle branch block and is in atrial fibrillation and no longer paced) Follow-up EKG: Attestation: I personally reviewed and interpreted this EKG as follows: Interpretation: Paced Comments: AV paced rhythm at a rate of 61 bpm Normal axis Mild ST segment morphology changes inferior leads as well as V5 and V6 with no reciprocal changes Prior: Changed Management Discussion w/another healthcare provider: Licensed Prosthetist Procedures Procedural Sedation 1 (Initial Baseline): Consent Signed: Yes Any Problems With Anesthesia: No You/Your family experience fever (hyperthermia) w/anesthesia: No Sedation medication: Etomidate Dose: 10 Route: IV Maliampati Score: Class II ASA Classification: III Other Procedures Procedure(s): Synchronized cardioversion Patient placed on continuous telemetry and end-tidal monitoring. Synchronized cardioversion performed at 200 J. Patient tolerated well. Shocked x 1. Converted back to sinus rhythm/AV dual pacing. No immediate complications. Discharge Plan Triage Chief Complaint: Palpitations ED Provider: Mimi Pennington Dx/Rx/DC Orders Clinical Impression: Atrial fibrillation with RVR, BURCH (dyspnea on exertion) Instructions: ED Cardioversion, Electrical Prescriptions: No Action acetaminophen 500 mg tablet 500 mg PO Q4H PRN (Reason: fever or pain) multivitamin Tablet 1 tab PO QAM vitamins A,C,U-uhdx-mepdgg 2,148 mcg-113 mg-45 mg-17.4mg tablet 1 tab PO DAILY Rx Instructions: administer with AM and PM meals albuterol sulfate [Ventolin HFA] 90 mcg/actuation HFA aerosol inhaler 2 puff inhalation Q4-6H PRN (Reason: shortness of breath or wheezing) metoprolol tartrate 100 mg tablet 100 mg PO BID Qty: 90 3RF levothyroxine 112 mcg tablet 112 mcg PO DAILY Patient Comments: TAKE 1 TABLET BY MOUTH EVERY DAY Xarelto 20 mg tablet 20 mg PO Q24H Qty: 90 3RF Primary Care Provider: Jens Mays Referrals: Kyle Fabian MD [Med Staff - Active Staff] - Jens Mays MD [Primary Care Provider] - Activity Restrictions/Additional Instructions: Your cardiac workup today was largely normal except for you were in atrial fibrillation with rapid ventricular response. You underwent electrical cardioversion with 1 shock. Please take your normal evening medications and follow-up outpatient next week with cardiology. Print Language: Zambian Disposition Disposition: Home, Self Care
== END 2025-02-23 23:40 | disposition home or self-care (01) ==
PROVIDERS: Emergency Provider Emergency Medicine; PCP Family Medicine; Visit Provider Emergency Medicine
DX: R00.2 Palpitations (principal); Z93.2 Ileostomy status; I48.0 Paroxysmal atrial fibrillation; Z79.01 Long term (current) use of anticoagulants; N18.9 Chronic kidney disease, unspecified; I12.9 Hypertensive chronic kidney disease with stage 1 through stage 4 chronic kidney disease, or unspecified chronic kidney disease; R06.00 Dyspnea, unspecified; Z95.0 Presence of cardiac pacemaker; Z85.038 Personal history of other malignant neoplasm of large intestine; E03.9 Hypothyroidism, unspecified; Z79.890 Hormone replacement therapy; Z79.899 Other long term (current) drug therapy; Z90.49 Acquired absence of other specified parts of digestive tract; Z98.51 Tubal ligation status; Z98.41 Cataract extraction status, right eye
CPT/HCPCS: 71045; 80048; 82803; 83735; 84484; 85025; 92960; 93005; 96361; 96374; 99284; A4216

== ENCOUNTER 2025-03-15 00:02 | Emergency (ER) | payer MEDICARE, OTHER, SELFPAY ==
[2025-03-15 00:03] VITALS: BP 144/79; PULSE 85; RESP 16; TEMP 36.4; O2SAT 99; BMI 34.4
--- NOTE | 2025-03-15 00:50 | EX.ED.DYSGE1 ---
HPI History of Present Illness Chief Complaint: Hypotension Informant: patient and family Narrative Narrative: Patient is a 79-year-old female with past medical history of hypertension and sick sinus syndrome status post cardiac pacemaker placement. She states that this evening she took her blood pressure and it was reading low approximately 90/60. She states she took it multiple times at home and it was giving her roughly the same value. She states that she tried to check her heart rate and rhythm on her smart watch and it was inconclusive if she was in A-fib or not. She states the fact that her blood pressure has been low on her machine and she is concerned she may have went back into atrial fibrillation despite her pacemaker she presents for evaluation. She states she is on Xarelto and has been taking as directed and she denies blood in her urine or stool. She also denies any recent sick symptoms [facility] Medical History Essential hypertension (02/23/25) LBBB (left bundle branch block) History of colon cancer Osteoporosis CKD (chronic kidney disease) Hypothyroidism BARRIE (obstructive sleep apnea) Paroxysmal atrial fibrillation Home Medications ?Medication ?Instructions ?Recorded ?Last Taken ?Type levothyroxine 112 mcg tablet 112 mcg PO DAILY 11/22/23 Unknown History acetaminophen 500 mg tablet 500 mg PO Q4H PRN fever or pain 07/25/24 Unknown History albuterol sulfate 90 mcg/actuation 2 puff inhalation Q4-6H PRN 07/25/24 Unknown History aerosol inhaler (Ventolin HFA) shortness of breath or wheezing multivitamin 1 tab PO QAM 07/25/24 Unknown History vitamins A,C,A-xwvy-husmga 2,148 1 tab PO DAILY 07/25/24 Unknown History mcg-113 mg-45 mg-17.4 mg tablet rivaroxaban 20 mg tablet (Xarelto) 20 mg PO Q24H #90 tabs 08/30/24 Unknown Rx pyridoxine (vitamin B6) 100 mg 100 mg PO QDAY 03/02/25 Unknown History tablet metoprolol tartrate 50 mg tablet 75 mg (1.5 x 50 mg) PO BID 90 days 03/13/25 Unknown Rx #270 tabs Allergy/AdvReac Type Severity Reaction Status Date / Time levofloxacin (From Levaquin) Allergy Unknown peripheral Verified 03/15/25 00:03 neuropathy azithromycin (From Zithromax) Allergy Angioedema Verified 03/15/25 00:03 Cephalosporins Allergy Swelling Verified 03/15/25 00:03 lisinopril AdvReac cough Verified 03/15/25 00:03 Family History Other Colon cancer Surgical History History of cardioversion (02/23/25) History of esophagogastroduodenoscopy (EGD) History of colonoscopy History of cholecystectomy History of tubal ligation H/O right cataract extraction Hx of atrioventricular node ablation Presence of permanent cardiac pacemaker Ileostomy status Social History Smoking Status: Never smoker alcohol intake: never substance use type: does not use caffeine: Yes Type: coffee Number of servings: 3 ROS ROS ED Constitutional Constitutional ED: Denies chills or fever(s) Eyes Eyes: Denies change in vision ENT ENT ED: Denies sore throat Cardiovascular Cardiovascular: Reports palpitations; Denies chest pain or racing heartbeat Respiratory/Chest Respiratory/Chest: Denies cough or dyspnea Gastrointestinal Gastrointestinal: Denies abdominal pain, nausea or vomiting Genitourinary Genitourinary ED: Denies dysuria Musculoskeletal Musculoskeletal: Denies back pain or myalgias Integumentary Denies rash Neurologic Neurologic: Denies headache(s), paresthesias or weakness Hematologic/Lymphatic Hematologic/Lymphatic: Reports easy bleeding and easy bruising EXAM Physical Exam Const Vital Signs: 03/15/25 00:03 03/15/25 00:03 03/15/25 00:55 Temperature 97.6 F L 98 F Temperature Source Oral Pulse Rate 85 60 Respiratory Rate 16 21 H Respiratory Effort Normal Non-Labored Respiratory Pattern Normal Blood Pressure 144/79 H 128/67 H Blood Pressure Mean 100 87 Pulse Ox 99 97 Oxygen Delivery Method Room Air Positive well nourished and well developed General Appearance ED: well developed; Negative for pallor HEENT HEENT Narrative: Normocephalic atraumatic No signs of infection noted in the posterior pharynx Mucous membranes are mildly dry and tacky Eyes PERRL and EOMs intact bilaterally General Eye ED: Negative for pale conjunctiva or scleral icterus Neck supple Neck Narrative: No nuchal rigidity or meningeal signs Resp normal respiratory effort and clear to auscultation bilaterally Cardio regular rate and regular rhythm Rate: other Other Details: Radial and carotid pulses are equal and symmetric GI normal to inspection, nondistended, normoactive bowel sounds, non-tender, non-distended and no masses GI Narrative: Colostomy in place in the right lower quadrant draining soft brown stool No pulsatile mass. No voluntary guarding or fluid wave No increased tympany Auscultation: normoactive bowel sounds Palpation: soft Extremity normal to inspection Neuro oriented x3, CN's II-XII intact bilaterally and no sensory deficits noted Sensorium / Orientation: alert Motor Exam: strength 5/5 throughout Psych mental status grossly normal Skin no rashes or lesions noted General Skin Exam: Negative for jaundice or pallor MDM MDM MDM Narrative Medical decision making narrative: Patient reported hypotension at home. She denied taking her blood pressure medication in excessive or incorrect amount. She also denied any concern for acute blood loss or potentially hypovolemia from dehydration. Without any type of treatment provided the patient's blood pressure was 140/80 and 130/70 in the ER. The can handler showed that her pacemaker is functioning properly and she is in a paced rhythm going 60 bpm. I discussed with patient that her home machine may be off as no medication/treatment has been given and her blood pressures are now normal. We discussed how if her blood pressure was truly low secondary to infection or cardiac dysrhythmia pacemaker malfunction or low blood volume or dehydration that the blood pressure should not spontaneously improve. I did offer basic blood work with continued cardiac monitoring and IV hydration as her physical exam did show changes concerning for dehydration. The patient states that as her monitoring confirms she is not in atrial fibrillation and her blood pressure is normal without intervention she does not wish to stay in the ER and will simply follow-up with her doctor for repeat evaluation. Therefore as she does not want any further testing and her vitals are stable I will discharge her home as requested. History & Record Review Discussion w/independent historian: Patient and Family Discharge Plan Triage Chief Complaint: Hypotension ED Provider: Boom Powers Dx/Rx/DC Orders Clinical Impression: History of permanent cardiac pacemaker placement, Sick sinus syndrome, Essential hypertension, Hypothyroidism Instructions: ED Low Blood Pressure, All Causes Prescriptions: No Action acetaminophen 500 mg tablet 500 mg PO Q4H PRN (Reason: fever or pain) multivitamin Tablet 1 tab PO QAM vitamins A,C,P-gxxi-hluxhs 2,148 mcg-113 mg-45 mg-17.4mg tablet 1 tab PO DAILY Rx Instructions: administer with AM and PM meals albuterol sulfate [Ventolin HFA] 90 mcg/actuation HFA aerosol inhaler 2 puff inhalation Q4-6H PRN (Reason: shortness of breath or wheezing) pyridoxine (vitamin B6) 100 mg tablet 100 mg PO QDAY levothyroxine 112 mcg tablet 112 mcg PO DAILY Patient Comments: TAKE 1 TABLET BY MOUTH EVERY DAY Xarelto 20 mg tablet 20 mg PO Q24H Qty: 90 3RF metoprolol tartrate 50 mg tablet 75 mg PO BID 90 Days Qty: 270 3RF Primary Care Provider: Jens Mays Referrals: Jens Mays MD [Primary Care Provider] - Activity Restrictions/Additional Instructions: Your blood pressure has been normal for multiple reads in the ER. Cardiac monitoring also displays that your pacemaker is functioning properly and there are no bouts of atrial fibrillation present. The fact that your blood pressure is normal without intervention/treatment indicates that your home device is most likely malfunctioning. Please take it to the fire station or your family doctor's office to check if the machine gives similar readings or is truly malfunctioning. Follow-up with your family doctor for repeat evaluation and return to the ER should you have any further concerns Print Language: Mozambican Disposition Disposition: Home, Self Care Discharge Date/Time: 03/15/25 00:58
[2025-03-15 00:55] VITALS: BP 128/67; PULSE 60; RESP 21; TEMP 36.6; O2SAT 97
== END 2025-03-15 00:58 | disposition home or self-care (01) ==
LOC: ED 00:53
PROVIDERS: Emergency Provider Emergency Medicine; PCP Family Medicine; Visit Provider Emergency Medicine
DX: I95.9 Hypotension, unspecified (principal); Z93.3 Colostomy status; I49.5 Sick sinus syndrome; I48.0 Paroxysmal atrial fibrillation; N18.9 Chronic kidney disease, unspecified; I12.9 Hypertensive chronic kidney disease with stage 1 through stage 4 chronic kidney disease, or unspecified chronic kidney disease; E03.9 Hypothyroidism, unspecified; Z95.0 Presence of cardiac pacemaker; Z79.01 Long term (current) use of anticoagulants; Z79.890 Hormone replacement therapy; Z79.899 Other long term (current) drug therapy; Z90.49 Acquired absence of other specified parts of digestive tract; Z98.51 Tubal ligation status; Z98.41 Cataract extraction status, right eye
CPT/HCPCS: 99282

== ENCOUNTER 2025-04-03 20:26 | Emergency (ER) | payer MEDICARE, OTHER, SELFPAY ==
[2025-04-03 20:28] VITALS: BP 135/90; PULSE 143; RESP 18; TEMP 36.7; O2SAT 96; BMI 34.8
--- NOTE | 2025-04-03 20:49 | EX.ED.DYSGE1 ---
HPI History of Present Illness Chief Complaint: Palpitations Informant: patient Onset/Context/Timing Onset: Today Context: Sudden Onset Timing: Continuous Quality: Lightheaded, nauseated Location: Generalized Worsened by: Nothing Relieved by: Nothing Narrative Narrative: Patient presents with atrial fibrillation that began today. Patient states she felt nauseated at home. Patient states she also felt lightheaded. Patient states that her watch told her that her heart was beating fast and she was in atrial fibrillation. Patient has a history of paroxysmal atrial fibrillation. Patient is on Xarelto and has not missed any doses. Patient states she does not feel any palpitations at this time. Patient denies any chest pain. Patient denies any shortness of breath or cough. Patient denies any fevers or chills. Patient states she took her metoprolol tonight prior to arrival. [facility] Medical History Essential hypertension (02/23/25) LBBB (left bundle branch block) History of colon cancer Osteoporosis CKD (chronic kidney disease) Hypothyroidism BARRIE (obstructive sleep apnea) Paroxysmal atrial fibrillation Home Medications ?Medication ?Instructions ?Recorded ?Last Taken ?Type levothyroxine 112 mcg tablet 112 mcg PO DAILY 11/22/23 Unknown History acetaminophen 500 mg tablet 500 mg PO Q4H PRN fever or pain 07/25/24 Unknown History albuterol sulfate 90 mcg/actuation 2 puff inhalation Q4-6H PRN 07/25/24 Unknown History aerosol inhaler (Ventolin HFA) shortness of breath or wheezing multivitamin 1 tab PO QAM 07/25/24 Unknown History vitamins A,C,M-gpvk-yonkgf 2,148 1 tab PO DAILY 07/25/24 Unknown History mcg-113 mg-45 mg-17.4 mg tablet rivaroxaban 20 mg tablet (Xarelto) 20 mg PO Q24H #90 tabs 08/30/24 Unknown Rx pyridoxine (vitamin B6) 100 mg 100 mg PO QDAY 03/02/25 Unknown History tablet metoprolol tartrate 50 mg tablet 75 mg (1.5 x 50 mg) PO BID 90 days 03/13/25 Unknown Rx #270 tabs Allergy/AdvReac Type Severity Reaction Status Date / Time levofloxacin (From Levaquin) Allergy Unknown peripheral Verified 04/03/25 20:30 neuropathy azithromycin (From Zithromax) Allergy Angioedema Verified 04/03/25 20:30 Cephalosporins Allergy Swelling Verified 04/03/25 20:30 lisinopril AdvReac cough Verified 04/03/25 20:30 Family History Other Colon cancer Surgical History History of cardioversion (02/23/25) History of esophagogastroduodenoscopy (EGD) History of colonoscopy History of cholecystectomy History of tubal ligation H/O right cataract extraction Hx of atrioventricular node ablation Presence of permanent cardiac pacemaker Ileostomy status Social History Smoking Status: Never smoker alcohol intake: never substance use type: does not use caffeine: Yes Type: coffee Number of servings: 3 ROS ROS ED Constitutional Constitutional ED: Denies chills or fever(s) Eyes Eyes: Denies blurry vision or change in vision ENT ENT ED: Denies rhinorrhea or sore throat Cardiovascular Cardiovascular: Denies chest pain or palpitations Respiratory/Chest Respiratory/Chest: Denies cough or dyspnea Gastrointestinal Gastrointestinal: Reports nausea; Denies vomiting Genitourinary Genitourinary ED: Denies dysuria or hematuria Musculoskeletal Musculoskeletal: Denies back pain or neck pain Integumentary Denies abscess or rash Neurologic Neurologic: Reports headache(s); Denies weakness Allergic/Immunologic Allergic/Immunologic ED: Denies mouth swelling or urticaria EXAM Physical Exam Const Vital Signs: 04/03/25 20:28 04/03/25 20:33 04/03/25 20:58 Temperature 98.1 F Temperature Source Oral Pulse Rate 143 H Pulse Rate [1 (Initial Baseline)] Pulse Rate [3] Pulse Rate [4] Respiratory Rate 18 Respiratory Rate [1 (Initial Baseline)] Respiratory Rate [3] Respiratory Rate [4] Respiratory Effort Normal Non-Labored Blood Pressure 135/90 H Blood Pressure [1 (Initial Baseline)] Blood Pressure [3] Blood Pressure [4] Blood Pressure Mean 105 Baseline BP Pulse Ox 96 93 Oxygen Delivery Method Room Air Room Air Oxygen Delivery Method [1 (Initial Baseline)] Oxygen Delivery Method [3] Oxygen Delivery Method [4] EtCo2 - Document during CPR and with ROSC EtCo2 - Document during CPR and with ROSC [1 (Initial Baseline)] EtCo2 - Document during CPR and with ROSC [3] EtCo2 - Document during CPR and with ROSC [4] 04/03/25 21:27 04/03/25 22:00 04/03/25 22:51 Temperature Temperature Source Pulse Rate 63 74 88 Pulse Rate [1 (Initial Baseline)] Pulse Rate [3] Pulse Rate [4] Respiratory Rate 13 20 H 16 Respiratory Rate [1 (Initial Baseline)] Respiratory Rate [3] Respiratory Rate [4] Respiratory Effort Blood Pressure 98/64 106/54 L 111/56 L Blood Pressure [1 (Initial Baseline)] Blood Pressure [3] Blood Pressure [4] Blood Pressure Mean 75 71 74 Baseline BP Pulse Ox 93 92 93 Oxygen Delivery Method Room Air Room Air Room Air Oxygen Delivery Method [1 (Initial Baseline)] Oxygen Delivery Method [3] Oxygen Delivery Method [4] EtCo2 - Document during CPR and with ROSC EtCo2 - Document during CPR and with ROSC [1 (Initial Baseline)] EtCo2 - Document during CPR and with ROSC [3] EtCo2 - Document during CPR and with ROSC [4] 04/03/25 23:48 04/04/25 00:00 04/04/25 00:05 Temperature Temperature Source Pulse Rate 85 Pulse Rate [1 (Initial Baseline)] 85 Pulse Rate [3] 63 Pulse Rate [4] 60 Respiratory Rate 16 Respiratory Rate [1 (Initial Baseline)] 16 Respiratory Rate [3] 16 Respiratory Rate [4] 18 Respiratory Effort Blood Pressure 116/61 Blood Pressure [1 (Initial Baseline)] 116/61 Blood Pressure [3] 125/76 H Blood Pressure [4] 114/68 Blood Pressure Mean Baseline BP 116/61 Pulse Ox 97 Oxygen Delivery Method Room Air Oxygen Delivery Method [1 (Initial Baseline)] Room Air Oxygen Delivery Method [3] Room Air Oxygen Delivery Method [4] Room Air EtCo2 - Document during CPR and with ROSC 34 34 EtCo2 - Document during CPR and with ROSC [1 (Initial Baseline)] 34 EtCo2 - Document during CPR and with ROSC [3] 31 EtCo2 - Document during CPR and with ROSC [4] 33 04/04/25 00:15 04/04/25 00:18 04/04/25 00:20 Temperature Temperature Source Pulse Rate 61 61 61 Pulse Rate [1 (Initial Baseline)] Pulse Rate [3] Pulse Rate [4] Respiratory Rate 19 H 19 H Respiratory Rate [1 (Initial Baseline)] Respiratory Rate [3] Respiratory Rate [4] Respiratory Effort Blood Pressure 108/61 108/61 110/61 Blood Pressure [1 (Initial Baseline)] Blood Pressure [3] Blood Pressure [4] Blood Pressure Mean 76 Baseline BP Pulse Ox 94 96 Oxygen Delivery Method Room Air Room Air Oxygen Delivery Method [1 (Initial Baseline)] Oxygen Delivery Method [3] Oxygen Delivery Method [4] EtCo2 - Document during CPR and with ROSC 33 33 EtCo2 - Document during CPR and with ROSC [1 (Initial Baseline)] EtCo2 - Document during CPR and with ROSC [3] EtCo2 - Document during CPR and with ROSC [4] 04/04/25 00:25 Temperature Temperature Source Pulse Rate 74 Pulse Rate [1 (Initial Baseline)] Pulse Rate [3] Pulse Rate [4] Respiratory Rate 19 H Respiratory Rate [1 (Initial Baseline)] Respiratory Rate [3] Respiratory Rate [4] Respiratory Effort Blood Pressure 114/71 Blood Pressure [1 (Initial Baseline)] Blood Pressure [3] Blood Pressure [4] Blood Pressure Mean Baseline BP Pulse Ox 96 Oxygen Delivery Method Room Air Oxygen Delivery Method [1 (Initial Baseline)] Oxygen Delivery Method [3] Oxygen Delivery Method [4] EtCo2 - Document during CPR and with ROSC 33 EtCo2 - Document during CPR and with ROSC [1 (Initial Baseline)] EtCo2 - Document during CPR and with ROSC [3] EtCo2 - Document during CPR and with ROSC [4] Positive well nourished and well developed Constitutional Narrative: BMI is 34.8. General Appearance ED: well developed and NAD HEENT Reports moist mucous membranes Neck supple and no JVD Resp normal respiratory effort and clear to auscultation bilaterally Cardio Rate: tachycardic Rhythm: abnormal rhythm irregularly irregular GI non-tender and non-distended Auscultation: normoactive bowel sounds Palpation: soft Extremity normal to inspection General Extremety ED: Negative for edema or tenderness General Extremity: Negative for edema Neuro oriented x3, CN's II-XII intact bilaterally and no sensory deficits noted Sensorium / Orientation: alert Motor Exam: strength 5/5 throughout Psych mental status grossly normal MDM MDM MDM Narrative Medical decision making narrative: Differential diagnosis includes cardiac dysrhythmia, cardiac ischemia, electrolyte abnormality, dehydration, anemia, pneumonia, bronchitis, hypomagnesemia, and anxiety. EKG will be obtained to assess for cardiac dysrhythmia and cardiac ischemia. Chest x-ray will be obtained to assess for pneumonia and bronchitis. CBC will be obtained to assess for leukocytosis and anemia. Basic metabolic profile will be obtained to assess for electrolyte abnormality and renal function. Serum magnesium will be obtained to assess for hypomagnesemia. High-sensitivity troponin will be obtained to assess for cardiac ischemia. 2-hour repeat high-sensitivity troponin will be obtained to assess for ongoing cardiac ischemia. Lab Data Attestation: I reviewed the patient's lab results. Lab results narrative: CBC was reviewed. There is a slight anemia with a hemoglobin of 11.9 and hematocrit 36.2. The remainder is within normal limits. Basic metabolic profile was reviewed and was within normal limits. Serum magnesium level was reviewed and was normal at 2.0. Initial high-sensitivity form was reviewed and was 18. 2-hour repeat high-sensitivity troponin was reviewed and was 16. Labs: Laboratory Results - last 24 hr 04/03/25 04/03/25 20:40 22:48 WBC 7.1 RBC 3.90 L Hgb 11.9 L Hct 36.2 L MCV 92.8 MCH 30.5 MCHC 32.9 RDW Std Deviation 46.1 H RDW Coeff of Shanice 13.6 Plt Count 181 MPV 10.5 Immature Gran % (Auto) 0.300 Neut % (Auto) 66.6 Lymph % (Auto) 21.3 Alfalfa % (Auto) 7.7 Eos % (Auto) 3.4 Baso % (Auto) 0.7 Absolute Neuts (auto) 4.7 Absolute Lymphs (auto) 1.51 Nucleated RBC % 0 Sodium 142 Potassium 4.2 Chloride 107 Carbon Dioxide 24.9 Anion Gap 10 BUN 16 Creatinine 0.96 Estim Creat Clear Calc 56.05 Est GFR (MDRD) Non-Af 60 BUN/Creatinine Ratio 16.6 Glucose 97 Calcium 9.2 Magnesium 2.0 Troponin T High Sens 18 H Troponin T Hi Sens 2 Hr 16 H Radiography Chest X-Ray - ED: 1 View, Read by ED Physician, Read by Radiologist and No Acute Disease Diagnostic Testing: Clinical Impression(s) from Imaging Studies Chest X-Ray 04/03/25 21:05 IMPRESSION: 1. No acute cardiopulmonary abnormality. 2. Metallic densities over the upper abdomen are presumed external to the patient. Correlate with exam. Reading Location: [facility] Portable 1 view chest x-ray was obtained. On my independent interpretation, lung kuhn are clear. There is normal cardiac silhouette. Bony thorax is normal. There is no acute process noted. Radiologist also interpreted the x-ray and agrees. EKG Initial EKG: Attestation: I personally reviewed and interpreted this EKG as follows: Interpretation: Atrial Fibrillation (134) and LBBB Comments: EKG was obtained. On my independent interpretation, shows atrial fibrillation with a rate of 134. QRS interval was prolonged at 138 ms. QTc interval was 450 ms. There is left axis deviation at -30. There is a left bundle branch block pattern noted. There are no acute ST or T wave changes noted. Prior EKG tracings: available for review Prior: Unchanged (02/23/2025) Follow-up EKG: Attestation: I personally reviewed and interpreted this EKG as follows: Interpretation: Atrial Fibrillation (89), LBBB and Non-Specific ST Changes Comments: Repeat EKG was obtained. On my independent interpretation, this showed atrial fibrillation with a rate of 89. QRS interval was 140 ms. QTc interval was 484 ms. There is left axis deviation -31. There are no acute ST or T wave changes. There is a left bundle branch block pattern. Prior EKG tracings: available for review Prior: Unchanged Treatment and Re-Evaluation :: Patient was given a dose of Cardizem. Patient does not want her aspirin. Patient's heart rate improved. Patient converted to a paced rhythm. Patient remained hemodynamically stable. Patient was advised of her findings. Patient converted back to atrial fibrillation with a controlled rate. Patient was advised of the need for electrical cardioversion. Patient states she has has this done before. Patient was given the opportunity ask any further questions. Patient no further questions. Informed consent is obtained. Patient was placed on continuous cardiac and pulse oximeter monitors. Patient was given etomidate 10 mg IV. After adequate sedation, the patient was cardioverted with 200 J synchronized cardioversion. Patient tolerated procedure well. Patient was noted to be in a paced rhythm after cardioversion. Patient had a total of 8 minutes of sedation. Patient felt better when she woke up. There were no hypoxic events noted. There were no hypercapnic events noted. Repeat EKG was obtained. On my independent interpretation, showed a paced rhythm with a rate of 60. There is a left bundle branch block pattern noted. There are no acute changes noted. Patient was advised of her findings. Patient was instructed to continue her medication as previously prescribed. Patient was instructed to follow-up with her primary care physician and virtual assistant in 3 to 5 days. Patient was instructed to return if worse in any way. Patient understood and was agreeable with the plan. All questions were answered. Procedures Procedural Sedation 1 (Initial Baseline): Consent Signed: Yes Any Problems With Anesthesia: No You/Your family experience fever (hyperthermia) w/anesthesia: No Sedation medication: Etomidate Dose: 10 Route: IV Maliampati Score: Class II ASA Classification: III Discharge Plan Triage Chief Complaint: Palpitations ED Provider: Nathen Rendon Dx/Rx/DC Orders Clinical Impression: Atrial fibrillation with rapid ventricular response, LBBB (left bundle branch block), History of permanent cardiac pacemaker placement, Essential hypertension Instructions: ED AFIB Prescriptions: No Action acetaminophen 500 mg tablet 500 mg PO Q4H PRN (Reason: fever or pain) multivitamin Tablet 1 tab PO QAM vitamins A,C,I-ldet-kjnzcd 2,148 mcg-113 mg-45 mg-17.4mg tablet 1 tab PO DAILY Rx Instructions: administer with AM and PM meals albuterol sulfate [Ventolin HFA] 90 mcg/actuation HFA aerosol inhaler 2 puff inhalation Q4-6H PRN (Reason: shortness of breath or wheezing) pyridoxine (vitamin B6) 100 mg tablet 100 mg PO QDAY levothyroxine 112 mcg tablet 112 mcg PO DAILY Patient Comments: TAKE 1 TABLET BY MOUTH EVERY DAY Xarelto 20 mg tablet 20 mg PO Q24H Qty: 90 3RF metoprolol tartrate 50 mg tablet 75 mg PO BID 90 Days Qty: 270 3RF Primary Care Provider: Jens Mays Referrals: Jens Mays MD [Primary Care Provider] - 3-5 Days Print Language: Italian Disposition Disposition: Home, Self Care
[2025-04-03 20:58] VITALS: O2SAT 93
--- NOTE | 2025-04-03 20:58 | EKG12_ITS ---
Test Reason : REPEAT Blood Pressure : */* mmHG Vent. Rate : 60 BPM Atrial Rate : 60 BPM P-R Int : 106 ms QRS Dur : 140 ms QT Int : 458 ms P-R-T Axes : * -36 62 degrees QTcB Int : 458 ms AV dual-paced rhythm Abnormal ECG Confirmed by KATERINA SUE, GILBERTO ([id number]), editorial intern VEDA CLARK ([id number]) on 04/04/2025 1:30:40 PM Referred By: TERE Confirmed By: GILBERTO BORGES MD
--- NOTE | 2025-04-03 21:05 | RAD_ITS ---
PROCEDURE: CHEST 1 VIEW (PORTABLE) 04/03/2025 REASON FOR EXAM: CHEST PAIN TECHNIQUE: Frontal view of the chest. COMPARISON: Chest radiograph 02/23/2025 FINDINGS: Hardware: Left chest cardiac device with 2 leads in unchanged position. Heart: Heart size is mildly enlarged. Aortic atherosclerosis. Lungs: No significant change in the appearance of the lungs. No significant pleural effusion. Bones: Degenerative changes are identified within the thoracic spine and shoulders. Metallic densities project over the upper abdomen. RAD/Chest 1 View (Portable) IMPRESSION: 1. No acute cardiopulmonary abnormality. 2. Metallic densities over the upper abdomen are presumed external to the patie nt. Correlate with exam. Reading Location: [facility]
[2025-04-03] MEDS: dilTIAZem 25 MG/5 ML Vial IV BOLUS (21:11)
[2025-04-03 21:21] LABS: Absolute Lymphocyte Count 1.51 X10^3/uL (0.83-4.51); Absolute Neutrophil Count 4.7 X10^3/uL (2.0-7.7); Basophil# 0.05 X10^3/uL; Basophil% 0.7 % (0-1); Eosinophil# 0.24 X10^3/uL; Eosinophils% 3.4 % (0-5); Hematocrit 36.2 % (37-47); Hemoglobin 11.9 g/dL (12.0-15.0); Lymphocyte # 1.51 X10^3/ul (0.83-4.51); Lymphocyte % 21.3 % (19-41); Mean Corp Hgb Conc 32.9 g/dL (32-36); Mean Corpuscular Hgb 30.5 pg (27.0-32.0); Mean Corpuscular Volume 92.8 fL (81-99); Mean Platelet Vol. 10.5 fl (6.2-12.0); Monocyte# 0.55 X10^3/uL; Monocyte% 7.7 % (0-10); NRBC Flagged by Analyzer 0 % (0-5); Neutrophil # 4.73 X10^3/uL (2.7-7.7); Neutrophil % 66.6 % (47-70); Platelet Count 181 K/mm3 (150-450); RBC Distribution Width CV 13.6 % (11.6-14.6); RBC Distribution Width SD 46.1 fl (35.1-43.9); White Blood Count 7.1 K/mm3 (4.4-11.0)
[2025-04-03 21:27] VITALS: BP 98/64; PULSE 63; RESP 13; O2SAT 93
[2025-04-03 21:42] LABS: Anion Gap 10 (5-15); BUN 16 mg/dL (4-19); BUN/Creat Ratio 16.6 RATIO (10-20); Calcium,Total 9.2 mg/dL (7.6-11.0); Carbon Dioxide 24.9 mmol/L (21.0-32.0); Chloride 107 mmol/L (98-108); Creatinine, Serum 0.96 mg/dL (0.70-1.20); EST Glomerular Filtration Rate 60 (>60); Estimated Creatinine Clearance 56.05 ml/min (50-250); Glucose 97 mg/dL (70-99); Potassium 4.2 mmol/L (3.3-5.1); Sodium Level 142 mmol/L (133-145); Troponin T High Sensitivity 18 ng/L (<=14)
[2025-04-03 22:00] VITALS: BP 106/54; PULSE 74; RESP 20; O2SAT 92
[2025-04-03 22:51] VITALS: BP 111/56; PULSE 88; RESP 16; O2SAT 93
[2025-04-03 23:18] LABS: Troponin T High Sens 2 HR 16 ng/L (<=14)
--- NOTE | 2025-04-03 23:25 | EKG12_ITS ---
Test Reason : A FIB Blood Pressure : */* mmHG Vent. Rate : 134 BPM Atrial Rate : * BPM P-R Int : * ms QRS Dur : 138 ms QT Int : 302 ms P-R-T Axes : * -30 109 degrees QTcB Int : 450 ms Atrial fibrillation with rapid ventricular response Left axis deviation Left bundle branch block Abnormal ECG Confirmed by KATERINA SUE, GILBERTO ([id number]), brands editor VEDA CLARK ([id number]) on 04/04/2025 1:31:06 PM Referred By: MARCIA Confirmed By: GILBERTO BORGES MD
[2025-04-04] VITALS (7 sets, daily range): BP systolic 108–125; BP diastolic 61–76; PULSE 60–85; RESP 16–19; TEMP 36.9; O2SAT 94–97
[2025-04-04] MEDS: Etomidate 20 MG/10 ML Vial 10 MG IV (00:05)
--- NOTE | 2025-04-04 00:14 | EKG12_ITS ---
Test Reason : REPEAT Blood Pressure : */* mmHG Vent. Rate : 89 BPM Atrial Rate : * BPM P-R Int : * ms QRS Dur : 140 ms QT Int : 398 ms P-R-T Axes : * -31 91 degrees QTcB Int : 484 ms Atrial fibrillation Left axis deviation Left bundle branch block Abnormal ECG Confirmed by KATERINA SUE, GILBERTO ([id number]), staff editor VEDA CLARK ([id number]) on 04/04/2025 1:30:53 PM Referred By: TERE Confirmed By: GILBERTO BORGES MD
== END 2025-04-04 00:39 | disposition home or self-care (01) ==
PROVIDERS: Emergency Provider Emergency Medicine; PCP Family Medicine; Visit Provider Emergency Medicine
DX: R00.2 Palpitations (principal); Z93.2 Ileostomy status; I48.0 Paroxysmal atrial fibrillation; I12.9 Hypertensive chronic kidney disease with stage 1 through stage 4 chronic kidney disease, or unspecified chronic kidney disease; N18.9 Chronic kidney disease, unspecified; Z79.01 Long term (current) use of anticoagulants; I44.7 Left bundle-branch block, unspecified; E03.9 Hypothyroidism, unspecified; Z79.890 Hormone replacement therapy; Z79.899 Other long term (current) drug therapy; Z90.49 Acquired absence of other specified parts of digestive tract; Z98.51 Tubal ligation status; Z98.41 Cataract extraction status, right eye; Z95.0 Presence of cardiac pacemaker
CPT/HCPCS: 71045; 80048; 83735; 84484; 85025; 92960; 93005; 96374; 96375; 99284; A4216

== ENCOUNTER → 2025-04-13 | Outpatient (CLI) | payer MEDICARE, OTHER, SELFPAY ==
[2025-04-13 16:06] LABS: Color, Urine Yellow (Yellow); Glucose, Dipstick Normal (Normal); Ketone-Dipstick Negative (Negative); Leukocyte Esterase-Dipstick Negative /ul (Negative); Nitrite-Dipstick Negative (Negative); Occult Blood-Urine 10 /ul (Negative); Protein-Dipstick 15 mg/dl (Negative); Specific Gravity, Urine 1.025 (1.002-1.030); Urine Bilirubin Dipstick Negative (Negative); Urine Clarity Clear (Clear); Urine Urobilinogen Normal (Normal)
[2025-04-13 16:41] LABS: Thyroid Stim Hormone (TSH) 0.869 uIU/mL (0.300-4.200)
[2025-04-13 16:43] LABS: Red Blood Cells-Urine 0-5 SEEN /hpf (0-5); Squamous Epithelial Cells - UA 0-5 SEEN /hpf (5-10); White Blood Cells 0-5 SEEN /hpf (0-5)
[2025-04-13 16:45] LABS: Bacteria 2+ /hpf (None Seen); Mucous, Urine 1+ /hpf (<or=2+)
== END | disposition home or self-care (01) ==
LOC: LAB 15:14
PROVIDERS: PCP Family Medicine; Referring Provider Internal Medicine Cardiovascular Disease; Visit Provider Internal Medicine Cardiovascular Disease
DX: R06.09 Other forms of dyspnea (principal); E03.9 Hypothyroidism, unspecified
CPT/HCPCS: 36415; 81001; 84443

== ENCOUNTER → 2025-05-05 | Outpatient (CLI) | payer MEDICARE, OTHER, SELFPAY ==
--- NOTE | 2025-05-05 10:01 | CDU_ITS ---
Reason For Study Reason For Study: Carotid Bruit Rt. Velocities/BP Lt. Velocities/BP Prox CCA 85.1/12.6 cm/sec. Prox CCA 83.9/16.8 cm/sec. Mid CCA 56.4/12.4 cm/sec. Mid CCA 45.6/12.5 cm/sec. Dist CCA 50.9/12.5 cm/sec. Dist CCA 50.0/14.2 cm/sec. Prox ICA 43.6/15.2 cm/sec. Prox ICA 35.9/10.2 cm/sec. Mid ICA 76.8/23.0 cm/sec. Mid ICA 59.6/21.2 cm/sec. Dist ICA 69.2/21.9 cm/sec. Dist ICA 77.0/27.3 cm/sec. Rt. ICA/CCA = 1.4. Lt. ICA/CCA = 1.7. Prox ECA 62.2/8.1 cm/sec. Prox ECA 38.4/5.7 cm/sec. Rt. Vert. 31.5/9.7 cm/sec. Lt. Vert. 26.9/9.2 cm/sec. Right Extracranial There is intimal thickening but no significant atherosclerotic plaque noted in the right common carotid artery. There is heterogeneous, irregular atherosclerotic plaque noted in the right internal carotid artery. There is intimal thickening but no significant atherosclerotic plaque noted in the right external carotid artery. Antegrade flow is noted in the right vertebral artery. Left Extracranial There is intimal thickening but no significant atherosclerotic plaque noted in the left common carotid artery. There is heterogeneous, irregular atherosclerotic plaque noted in the left internal carotid artery. There is intimal thickening but no significant atherosclerotic plaque noted in the left external carotid artery. Antegrade flow is noted in the left vertebral artery. Procedure Carotid Duplex 19643. This is a Carotid Duplex examination using B-mode, color flow and specral Doppler. Exam performed in department. VL/Carotid Duplex Ultrasound Interpretation Summary Mild (<50%) stenosis right extracranial internal carotid. Mild (<50%) stenosis left extracranial internal carotid. Flow within the vertebral arteries is antegrade bilaterally. Ordering Physician: Domitila Vegas Referring Physician: Jens Mays MD Performed By: Svetlana Velazquez RVT
== END | disposition home or self-care (01) ==
LOC: PSN 09:07
PROVIDERS: PCP Family Medicine; Referring Provider Internal Medicine Cardiovascular Disease; Visit Provider Internal Medicine Cardiovascular Disease
DX: Z79.899 Other long term (current) drug therapy (principal); R09.89 Other specified symptoms and signs involving the circulatory and respiratory systems
CPT/HCPCS: 93880; 94060; 94726; 94729